=== PATIENT | male | born 1950 | race Caucasian/White ===

== ENCOUNTER 2022-06-19 08:57 | Outpatient (CLI) | payer MEDICARE, BC, SELFPAY ==
--- NOTE | 2022-06-19 09:15 | CRLHL7_ITS ---
For Patients: As a result of the Century Cures Act, medical imaging exams and procedure reports are released immediately into your electronic medical record. You may view this report before your referring provider. If you have questions, please contact your health care provider. INDICATION : Right thyroid lobe nodule TECHNIQUE : Ultrasound-guided fine needle aspiration of thyroid nodule. Comparison : 06/12/2022 FINDINGS : PROCEDURE: After the informed consent and time-out, multiple fine needle aspirations were obtained from the thyroid nodule. Fine needle performed. 25 gauge needles were used. Lidocaine was used for local anesthesia. The preliminary cytology was adequate for interpretation. Real-time imaging was used for guidance and needle placement. Post imaging ultrasound demonstrates no immediate complication. IMPRESSION : Successful fine needle aspiration of right sided thyroid nodule. Dictated by Adarsh Lauren MD @ 06/19/2022 10:46:07 AM (Electronically Signed)
== END 2022-06-19 08:58 | disposition home or self-care (01) ==
PROVIDERS: PCP Student in an Organized Health Care Education/Training Program; Visit Provider Student in an Organized Health Care Education/Training Program
DX: E04.1 Nontoxic single thyroid nodule (principal)
CPT/HCPCS: 10005; 88173

== ENCOUNTER 2022-12-19 18:13 | Emergency (ER) | payer MEDICARE, BC, SELFPAY ==
[2022-12-19 18:21] VITALS: BP 131/74; PULSE 95; RESP 22; TEMP 36.5; O2SAT 97
--- NOTE | 2022-12-19 18:35 | ED_ITS ---
HPI - General Adult General Chief complaint: Lower Extremity Swelling Stated complaint: Swelling R Foot Ankle Calf Time Seen by Provider: 12/19/22 18:14 History of Present Illness HPI narrative: noticed swelling of his right lower leg last night at 2200 after a walk. has concerns of a possible blood clot. denies pain. has been getting treatment in [facility] for multiple myeloma including a stem cell transplant . in immunosuppresse d. called [place] and was directed here. 72-year-old man presenting to the emergency department complete concern of right lower leg/ankle swelling. This began last night after a walk. Worried about possible blood clot. Underlying history of multiple myeloma and 2 months ago received a stem cell transplant. He is not taking any antiplatelet therapy or any anticoagulant. No new shortness of breath or chest pain. No cough. Thought he better just stay ahead of this. Did call to clinic at [place] and is recommended to the emergency department. Related Data Previous Rx's Medication Instructions Recorded apixaban 5 mg (74 tabs) tablets in See Rx Instructions PO .COMPLEX 12/19/22 a dose pack (Superpedestrian DVT-PE Treat #74 ea 30D Start) Allergies Allergy/AdvReac Type Severity Reaction Status Date / Time No Known Drug Allergies Allergy Verified 12/19/22 18:21 Review of Systems Status of ROS: Reports: 6 or more systems reviewed and unremarkable except as noted in History and below PFSH [facility] Social History Smoking Status: Never smoker Do you use any of these nicotine containing products: None Second hand tobacco smoke exposure: Yes How often do you have a drink containing alcohol: monthly or less How many standard drinks containing alcohol do you have on a typical day: 1 or 2 How often do you have six or more drinks on one occasion: Never AUDIT-C Alcohol total score: 1 Non-prescribed substance use: denies use service: No Exam Narrative: Exam Narrative: Pleasant. NAD. Wearing a mask. Breathing easily. Skin is warm and dry. No cellulitic changes about the right lower extremity. Comparing right to left clearly is more edema around the right lower extremity. Somewhere between 1 and 2+ pitting edema from mid leg down. No pain. Negative Homans. Well-perfused. Heart in mildly elevated rate initially in a regular rhythm. Const: Vital Signs, click to edit/add: Vital Signs - 24 hr 12/19/22 18:21 12/19/22 18:42 Temperature 97.7 F 97.2 F L Pulse Rate [Pulse Oximeter] 95 78 Respiratory Rate 22 16 Blood Pressure [Le ft Upper Arm] 131/74 125/78 Pulse Oximetry 97 98 Oxygen Delivery Me thod Room Air Documenting provider has reviewed patient's vital signs: yes Course Vital Signs Vital signs: Initial Vital Signs Temperature 97.7 F 12/19/22 18:21 Temperature Source Temporal Artery Scan 12/19/22 18:21 Pulse Rate 95 12/19/22 18:21 Pulse Rhythm Regular 12/19/22 18:21 Respiratory Rate 22 12/19/22 18:21 Blood Pressure 131/74 12/19/22 18:21 Blood Pressure Mean 93 12/19/22 18:21 Pulse Oximetry 97 12/19/22 18:21 Oxygen Delivery Method Room Air 12/19/22 18:21 Vital Signs Temperature 97.7 F 12/19/22 18:21 Pulse Rate 95 12/19/22 18:21 Respiratory Rate 22 12/19/22 18:21 Blood Pressure 131/74 12/19/22 18:21 Pulse Oximetry 97 12/19/22 18:21 Oxygen Delivery Method Room Air 12/19/22 18:21 Temperature 97.2 F L 12/19/22 18:42 Pulse Rate 78 12/19/22 18:42 Respiratory Rate 16 12/19/22 18:42 Blood Pressure 125/78 12/19/22 18:42 Pulse Oximetry 98 12/19/22 18:42 Oxygen Delivery Method Room Air 12/19/22 18:21 Medical Decision Making MDM Narrative Medical decision making narrative: Asymmetry of presentation warrants ultrasound. And with multiple myeloma a set up for thrombus. Discussed with the mat weaver who notes extensive clot burden from upper thigh to ankle. Radiology Over-read Right lower extremity ultrasound as below--- FINDINGS: Deep veins: Acute thrombus extending from the right common femoral vein, through the femoral and popliteal vein and into the posterior tibial and peroneal veins Superficial veins: Greater saphenous vein is fully compressible. No popliteal cyst. IMPRESSION: Acute thrombus extending from the right common femoral vein, through the femoral and popliteal vein and into the posterior tibial and peroneal veins. Images sent to [facility]. Discussed with on-call provider for [facility] and [facility]. Labs looked good few weeks ago including normal platelet level I believe approximately 180,000. They are in support of initiating NOAC therapy. Given 10 mg of apixaban here in the emergency department. See patient discharge plan Medical Records Medical records reviewed: Yes I reviewed the patient's medical records Discharge Plan Discharge Clinical Impression: Deep venous thrombosis, Multiple myeloma Patient Disposition: Home w/ Parent or Adult Condition: Stable Additional Instructions: Begin further apixaban/Eliquis tomorrow morning; script sent to pharmacy. There are other similar-acting medications available if it turns out that insurance coverage is an issue for you. Report increasing and persistent shortness of breath or chest pain, marked increase in pain or swelling of your leg. BMT (Dr. Gonzales's?) recommendation is to hold your morning dosing of Eliquis/apixaban the morning of your bone marrow biopsy I believe that would be on the . He is also sending a message to your team. Ultrasound images have been sent as well to [facility]. Prescriptions: New Eliquis DVT-PE Treat 30D Start 5 mg (74 tabs) tablets,dose pack See Rx Instructions .ROUTE .COMPLEX Qty: 74 0RF Rx Instructions: orally per package directions Follow Up/Referrals: BRIANNA VÁSQUEZ DO [Primary Care Provider] - Stand Alone Forms: [facility] Info Instructions
--- NOTE | 2022-12-19 18:41 | CRLHL7_ITS ---
For Patients: As a result of the Century Cures Act, medical imaging exams and procedure reports are released immediately into your electronic medical record. You may view this report before your referring provider. If you have questions, please contact your health care provider. INDICATION: Leg pain and swelling. TECHNIQUE: Ultrasound venous duplex lower right extremity. Compression venous exam was performed using mcdonald-scale, color Doppler, and spectral Doppler analysis. COMPARISON: None. FINDINGS: Deep veins: Acute thrombus extending from the right common femoral vein, through the femoral and popliteal vein and into the posterior tibial and peroneal veins Superficial veins: Greater saphenous vein is fully compressible. No popliteal cyst. IMPRESSION: Acute thrombus extending from the right common femoral vein, through the femoral and popliteal vein and into the posterior tibial and peroneal veins. Case discussed with Adarsh Michelle at 6:12 p.m. on 12/19/2022. Dictated by Compa Campoverde MD @ 12/19/2022 8:10:56 PM (Electronically Signed)
[2022-12-19 18:42] VITALS: BP 125/78; PULSE 78; RESP 16; TEMP 36.2; O2SAT 98
[2022-12-19] MEDS: APIXABAN 5 MG TABLET 10 MG PO (21:19)
--- NOTE | 2022-12-20 09:48 | ED.NURSE ---
called the patient and informed of needing to get a Cr level done since starting on apixaban per Dr. Bustillos. patient will contact provider to obtain this. Pharmacy called about the dosing of apixaban 10 mg orally BID x 7days and then 5mg BID for the rest of the time and Dr. Bustillos agreed but requested patient to obtain Cr level by PCP.
== END 2022-12-19 21:21 | disposition home or self-care (01) ==
PROVIDERS: Emergency Provider Family Medicine; PCP Student in an Organized Health Care Education/Training Program
DX: I82.411 Acute embolism and thrombosis of right femoral vein (principal); C90.00 Multiple myeloma not having achieved remission
CPT/HCPCS: 93971; 99283; 99284; A9270

== ENCOUNTER 2024-12-17 06:08 | Outpatient (CLI) | payer MEDICARE, BC, SELFPAY | END 2024-12-17 06:09 | disposition home or self-care (01) | LOC: AMB 12-18 10:12 | PROVIDERS: PCP Student in an Organized Health Care Education/Training Program; Visit Provider Family Medicine | DX: R53.1 Weakness (principal); R50.9 Fever, unspecified; R10.9 Unspecified abdominal pain | CPT/HCPCS: A0425; A0433 ==

== ENCOUNTER 2024-12-17 06:45 | Inpatient (IN) | payer MEDICARE, BC, SELFPAY ==
[2024-12-17] VITALS (43 sets, daily range): BP systolic 120–175; BP diastolic 61–87; PULSE 67–86; RESP 28–44; TEMP 35.9–37.8; O2SAT 90–98; BMI 36.5; BMI 30.6
--- OUTSIDE RECORDS SUMMARY | 2024-12-17 06:48 | XMS_ITS | Clinical Summary ---
Author Organization [facility] Address [address] [place] [id number] Care Team Providers Care Assembler Tester Name Role Phone Quincyra Alma CHAVEZ Primary Care Provider [phone] Yvette Valerio MD Unavailable [phone] Martha Todd NUTRITION SERVICES ASSOCIATE Unavailable Kiara Bai RN Unavailable [phone] Taty Parker RN Unavailable Allergies No known active allergies Medications DME Foot orthotics 2 pair Diagnosis foot pain 2 Units 0 03/25/20 13 Active ACCU-CHEK WILNER PLUS TEST STRP stripIndication s:Type 2 diabetes mellitus without complication, without long-term current use of insulin (HC) USE TO TEST BLOOD GLUCOSE ONCE DAILY DIRECTED 100 Strip 3 07/29/19 21 Active blood-glucose meterIndication s:Type 2 diabetes mellitus with diabetic neuropathy, without long-term current use of insulin (HC) Dispense prodigy meter, test strips, lancets covered by pt ins. 1 Device 09/29/19 21 Active lancetsIndicati ons:Type 2 diabetes mellitus with diabetic neuropathy, without long-term current use of insulin (HC) Test 1 times per day. 100 Each 3 11/30/19 22 Active blood sugar diagnostic stripIndication s:Type 2 diabetes mellitus with diabetic neuropathy, without long-term current use of insulin (HC) Check glucose 4 times daily daily Dispense item covered by pt ins. Prodigy requested 125 Each 5 07/26/19 23 Active Insulin [place], Disposable, (Aidee Pen Needle) 32 gauge x 5/32Indication s:Type 2 diabetes mellitus with diabetic neuropathy, without long-term current use of insulin (HC) As directed. To use with insulin once daily 100 Each 3 07/26/19 23 Active polyethylene glycol 3350 (MIRALAX ORAL) Take 17 g by mouth each time if needed. Active MULTIVITAMIN ORAL Take by mouth. Activ e insulin syringe-needle u-100 0.3 mL 31 gauge x 5/16Indication s:Type 2 diabetes mellitus with diabetic neuropathy, without long-term current use of insulin (HC) To be used with Tresiba once nightly 100 Each 3 09/23/19 24 Active metFORMIN (GLUCOPHAGE XR) 500 mg Extended-Releas e tabletIndicatio ns:Type 2 diabetes mellitus with diabetic neuropathy, without long-term current use of insulin (HC) TAKE TWO TABLETS BY MOUTH TWICE A DAY WITH MEALS 360 Tablet 3 01/02/20 24 Active FreeStyle Danna 2 ReaderIndicatio ns:Type 2 diabetes mellitus without complication, without long-term current use of insulin (HC) To be used to read blood sugars per global program director's directions. 1 Each 3 04/17/20 24 Active Eliquis 5 mg tabletIndicatio ns:Acute deep vein thrombosis (DVT) of proximal vein of right lower extremity (HC) TAKE ONE TABLET BY MOUTH TWICE A DAY . 180 Tablet 1 07/06/20 24 Active acyclovir (ZOVIRAX) 400 mg tabletIndicatio ns:Multiple myeloma not having achieved remission (HC) TAKE ONE TABLET BY MOUTH TWICE A DAY 60 Tablet 5 07/03/20 24 Active trimethoprim-black lfamethoxazole 80-400 mg tabIndications: Multiple myeloma, remission status unspecified (HC) Take 1 Tablet by mouth once daily. 30 Tablet 11 08/06/19 25 Active pen needle (Aidee Pen Needle) 32 gauge x 5/32 (disposable insulin pen needle)Indicati ons:Type 2 diabetes mellitus with diabetic neuropathy, without long-term current use of insulin (HC) TO BE USED WITH TRESIBA ONCE NIGHTLY 100 Each 3 09/02/19 25 Active insulin degludec (U-100) (Tresiba FlexTouch U-100) 100 unit/mL (3 mL) penIndications: Type 2 diabetes mellitus without complication, with long-term current use of insulin (HC) Inject 11 units subcutaneous once daily in the evening. 11/07/19 25 Active pregabalin 75 mg capsuleIndicati ons:Peripheral sensory neuropathy Take 1 Capsule (75 mg) by mouth two times daily. 180 Capsule 1 11/07/19 25 Active FreeStyle Danna 3 Plus Sensor for continuous blood glucose monitor (CGM)Indication s:Type 2 diabetes mellitus with diabetic neuropathy, without long-term current use of insulin (HC) To be used to read blood sugars, change sensor every 15 days. 6 Each 3 11/07/19 25 Active paper sample clerk (FreeStyle Danna 3 [place]) for continuous blood glucose monitor (CGM)Indication s:Type 2 diabetes mellitus with diabetic neuropathy, without long-term current use of insulin (HC) To be used to read blood sugars follow global program director directions. 1 Each 11/07/19 25 Active potassium chloride 20 mEq packetIndicatio ns:Hypokalemia Mix 1 Packet (20 mEq) in liquid then take by mouth two times daily with meals. 90 Packet 3 11/26/19 25 Active lenalidomide (Revlimid) 10 mg capsuleIndicati ons:Multiple myeloma not having achieved remission (HC),Hypothyroi dism due to medication Take 1 Capsule (10 mg) by mouth once daily. Take on days 1-21 of an every 28 day cycle 21 Capsule 12/30/19 25 Active lenalidomide (Revlimid) 10 mg capsuleIndicati ons:Multiple myeloma not having achieved remission (HC),Hypothyroi dism due to medication Take 1 Capsule (10 mg) by mouth once daily. Take on days 1-21 of an every 28 day cycle 21 Capsule 11/04/19 25 025 Discontin ued(Reord er (E-cancel not sent)) potassium chloride 10 mEq extended-releas e tablet (part/cryst)Ind ications:Hypoka lemia Take 1 Tablet (10 mEq) by mouth two times daily with meals. 10 Tablet 11/04/19 25 025 Discontin ued(*Medi cation adjustmen t) lenalidomide (Revlimid) 10 mg capsuleIndicati ons:Multiple myeloma not having achieved remission (HC),Hypothyroi dism due to medication Take 1 Capsule (10 mg) by mouth once daily. Take on days 1-21 of an every 28 day cycle 21 Capsule 12/02/19 025 Discontin ued(Reord er (E-cancel not sent)) Active Problems Problem Noted Date Diagnosed Date Stem cells transplant status 11/26/2024 Overview (11/26/2024): AI Summary: As of 08/06/24: The patient had a stem cell transplant (HC Z94.84). Recent encounter dx: 08/06/24: Appointment - [facility] Recent notes: 08/06/24: Progress Notes - Medicare Wellness Visit by DO Pearl Caballero. [+] Stem cells transplant status (HC) Z94.84 Hypothyroidism due to medication 08/11/2024 Type 2 diabetes mellitus wit h diabetic neuropathy, without long-term current use of insulin 07/11/2023 Pancytopenia 11/11/2022 12/07/2022 Primary hypertension 10/15/2022 12/07/2022 Obesity with body mass index 30 or greater 10/1512/07/2022 Bone marrow transplant status 10/11/2022 Multiple myeloma not having achieved remission 1 08/06/2021 Cancer Staging:Clinical: High-risk cytogenetics: Present - Signed by Yvette Valerio MD on 01/01/2023 Type 2 diabetes mellitus without complication Colon polyp 08/07/2010 Overview (06/27/2023): Colonoscopy 07/2010 multiple polyps repeat in 3 year Colonoscopy 03/2020 six polyps, repeat in 3 years Colonoscopy 06/2023 normal, repeat in 7-10 years Encounters Date Type Department Care Team Description 12/15/2024 1:45 PM CDT Office Visit [facility] [id number] [id number] Taty Leroy MD Derm Problem 12/15/2024 Travel 12/10/2024 Travel 12/01/2024 10:00 AM CDT Office Visit [address] [phone] Yvette Valerio MD Follow Up (Multiple myeloma not having achieved remission ) 12/01/2024 9:00 AM CDT - 12/01/2024 11:59 PM CDT Hospital Encounter [facility] [address] [facility] [place] [address] Hypothyroidism due to medication (Primary Dx); Multiple myeloma not having achieved remission (HC) 12/01/2024 Travel 11/27/2024 Travel 11/26/2024 8:55 AM CDT Office Visit [facility] [address] [place] [address] Alma Mcwilliams DO Ear Pain/problem (RIGHT ear ) 11/26/2024 Travel 11/24/2024 3:15 PM CDT Orders Only [facility] [address] [place] [address] Lab, [facility] 11/24/2024 Travel 11/24/2024 Hospital/[facility] Telephone Encounter [facility] [address] [facility] [place] [address] Ksenia Desouza RN Pre Procedure (PVP) 11/21/2024 Refill [facility] Disease Management [address] [place] [address] Yvette Valerio MD Refill Request (Revlimid) 11/09/2024 Refill [facility] [address] [place] [address] Alma Mcwilliams DO Refill Request (FreeStyle Danna 2 Sensor) 11/06/2024 11:25 AM CDT Office Visit [facility] [address] [place] [address] Alma Mcwilliams DO Diabetes 11/06/2024 Telephone [facility] [address] [place] [address] Alma Mcwilliams DO Medication Management (FREESTYLE DANNA) 11/06/2024 Travel 11/04/2024 Travel 11/03/2024 9:45 AM CDT Office Visit [facility] [address] [place] [address] Martha Todd, DAMIAN Follow Up (Multiple myeloma not having achieved remission) 11/03/2024 8:45 AM CDT - 11/03/2024 11:59 PM CDT Hospital Encounter [facility] [address] [facility] [place] [address] Hypothyroidism due to medication (Primary Dx); Multiple myeloma not having achieved remission (HC) 11/03/2024 Travel 10/28/2024 Hospital/[facility] Telephone Encounter [facility] [address] [place] [address] Ksenia Desouza RN Pre Procedure (PVP) 10/13/2024 12:40 PM CDT - 10/13/2024 11:59 PM CDT Hospital Encounter [facility] [address] [place] [address] Alma Mcwilliams DO Noble, Isaac J, PT 10/13/2024 Travel 10/06/2024 12:54 PM CDT - 10/06/2024 11:59 PM CDT Hospital Encounter [facility] [address] [place] [address] Alma Mcwilliams DO Noble, Isaac J, PT 10/05/2024 11:30 AM CDT Office Visit [facility] [address] [place] [phone] Yvette Valerio MD Follow Up (Multiple myeloma) 10/05/2024 10:22 AM CDT - 10/05/2024 11:59 PM CDT Hospital Encounter [facility] [address] [place] [address] Hypothyroidism due to medication (Primary Dx); Multiple myeloma not having achieved remission (HC) 10/05/2024 Travel 10/03/2024 Travel 09/29/2024 11:37 AM CDT - 09/29/2024 11:59 PM CDT Hospital Encounter [address] [address] Alma Mcwilliams DO Noble, Isaac J, PT 09/29/2024 Hospital/[facility] Telephone Encounter [facility] - [address] [place] [address] Geraldine Powers, RN Pre Procedure 09/29/2024 Travel from Last 3 Months Immunizations Immunization Administration Dates Next Due COVID-19 VACCINE SPIKEVAX (M ODERNA 50MCG/0.5ML) 12YO+ PFS 05/13/2023 COVID-19 vaccine (Pfizer-Bio NTech 30mcg/0.3mL) 12YO+ BIVALENT PF, MDV 03/29/2022 COVID-19 vaccine (Pfizer-Bio NTech 30mcg/0.3mL) 12YO+ ARSALAN-SUCROSE PF, MDV 10/31/2021 COVID-19 vaccine (Pfizer-Bio NTech 30mcg/0.3mL) PF, MDV 04/17/2021,10/04/2020,09/13/2020 DTaP 09/16/2023,07/04/2023,04/29/2023 HIB PRP-OMP (PedvaxHIB) 09/16/2023,07/04/2023, Hepatitis A (Adult) 11/18/2023,05/13/2023 Hepatitis B (Adult) 11/18/2023,07/19/2023,2022 Inactivated Polio Vaccine 09/16/2023,07/19/2023, 05/13/2023 Influenza Virus, Unspecified 03/12/2018,05/19/20 17 Influenza, High-dose Quadriv alent Inactivated 04/24/2021 Influenza, IIV3 (Age 6-35 mos) 03/12/2018,2008 Influenza, IIV3 (Age >=3 years) 03/13/2013,03/12,05/08/2010 Influenza, IIV4 03/10/2015,03/11/2014 Influenza, IIV4 (=>6mos) MDV 03/09/2020,03/11/20 19 Influenza, Inactivated AIIV4 (Age 65+ Years) Preserv Free 04/02/2023,03/29/2022 Influenza, Inactivated IIV3 (Age 65+ Years) Preserv Free 04/02/2024 MENINGOCOCCAL VACCINE 2 VIAL 2MO-55YO (MENVEO) 07/04/2023,04/29/2023 Pneumococcal Conj 20-valent (Prevnar 20) 04/29/2023 Pneumococcal Poly,23-Valent (Pneumovax) 06/10/2019 Pneumococcal conj 13-Valent (Prevnar 13) 03/18/2018 RSV, Recombinant ADJ Reconst ituted (Arexvy 120MCG/0.5mL) 04/08/2024 Td (Age >=7 Years) 09/16/2006 Tdap 02/13/2017 Zoster (Shingrix-RZV, recombinant) 07/19,05/13/2023,2019,06/10 Family History Medical History Relation Name Comments Diabetes Brother type 1 Cancer-colon Father Relation Name Status Comments Brother Father Social History Tobacco Use Types Packs/Day Years Used Date Smoking Tobacco: Never Smokeless Tobacco: Never Tobacco Cessation:Counseling Given: Yes Alcohol Use Standard Drinks/Week Comments Not Currently 0 (1 standard drink = 0.6 oz pur e alcohol) occ - 1 a month PHQ-2 Answer Date Recorded PHQ-2 TOTAL SCORE 0 08/06/2024 Social Connections Answer Date Recorded Do you often feel lonely or isolated from those around you? 0 04/30/2024 Financial Resource Strain Answer Date R ecorded Difficulty of Paying Living Expenses 3 04/30/2024 Difficulty of Paying Living Expenses Not on file 04/30/2024 Food Insecurity Answer Date Recorded Do you worry your food will run out before you are able to buy more? 1 04/30/2024 Transportation Needs Answer Date Record ed Does lack of transportation keep you from medica l appointments? 1 04/30/2024 Does lack of transportation keep you from work, meetings or getting things that you need? 1 04/30/2024 Housing Stability Answer Date Recorded What is your housing situation today? 1 04/30/2024 Interpersonal Safety Answer Date Record ed Are you being hit, kicked, p ushed or yelled at (see row info)? No 03/17/2024 Interpersonal Safety Abuse 12 - 18 Not on file 03/17/2024 Interpersonal Safety Ambulatory Vulnerability No t on file 03/17/2024 Utilities Answer Date Recorded Do you have trouble paying f or utilities (for example, heat, electricity, water, phone)? 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 on file Not on file Not on file Travel History Travel Start Travel End [place] 12/04/2024 12/13/2024 Obstetrics History Last Filed Vital Signs Vital Sign Reading Time Taken Comments Blood Pressure 147/69 12/01/2024 9:47 AM CDT Pulse 60 12/01/2024 9:47 AM CDT Temperature 36.4 C (97.5 F) 12/01/2024 9:47 AM CDT Respiratory Rate 16 12/01/2024 9:47 AM CDT Oxygen Saturation 96% 12/01/2024 9:47 AM CDT Inhaled Oxygen Concentration - - Weight 96.8 kg (213 lb 8 oz) 12/01/2024 9:47 AM CDT Height 175.3 cm (5' 9) 08/06/2024 12:29 PM SEAM FELLER Body Mass Index 31.53 08/06/2024 12:29 PM SEAM FELLER Plan of Treatment Upcoming Encounters Date Type Department Care Team (Late st Contact Info) Description 12/29/2024 11:45 AM CDT Appointment [facility] [address] [place] [address] 12/29/2024 12:45 PM CDT Office Visit [facility] [address] [place] [phone] Martha Todd, NUTRITION SERVICES ASSOCIATE [address] [place] [address] 12/29/2024 1:15 PM CDT Appointment [facility] [address] [place] [address] 02/08/2025 11:00 AM CDT Office Visit [address] [address] Oj DO Alma [address] [place] [address] Health Maintenance Due Date Last Done Comments COVID-19 vaccine series (8 - Pfizer risk 2023- season) 2024 04/02/2024, 05/13/2023, 03/29/2022, Additional history exists BMI (ht and wt on same day) for age 18+ 08/06/2025 08/06/2024, 07/11/2023, 04/09/2023, Additional history exists Medicare Wellness for age 65+ 08/07/2025, 07/11/2023, 10/31/2021 Depression screening for age 12+ 08/14/2025 08/14/2024, 08/10/2024, 08/06/2024, Additional history exists Tetanus booster 02/13/2027 02/13/2017, 09/16/2006 Lipids for age 45-75 08/06/2029 08/06/2024, 04/28/2021, 2019, Additional history exists Colonoscopy through age 75 06/27/203006/27, 06/27/2023, 06/27/2023, Additional history exists Tdap Completed 02/13/2017 Hepatitis C screening for ag e 18-79 Completed 10/27/2020 Pneumococcal series for age 50+ Completed 04/29/2023, 06/10/2019, 03/18/2018 Zoster (shingles) series for age 50+ Completed 07/19/2023, 05/13/2023, 2019, Additional history exists Hepatitis B series for 19+ Completed 11/17, 07/19/2023, 05/13/2023 Influenza Vaccine Completed 04/02/2024, , 03/29/2022, Additional history exists RSV vaccine for adults or Completed 04/08/2024 Procedures Procedure Name Priority Date/Time Associated Diagnosis Comments T4,FREE Timed 12/01/2024 9:12 AM CDT Multiple myeloma not having achieved remission (HC) Hypothyroidism due to medication CBC WITH AUTO DIFFERENTIAL STAT 12/01/2024 9:12 AM CDT Multiple myeloma not having achieved remission (HC) Hypothyroidism due to medication TSH WITH REFLEX Today 12/01/2024 9:12 AM CDT Multiple myeloma not having achieved remission (HC) Hypothyroidism due to medication PROTEIN ELP,SERUM Today 12/01/2024 9:1 2 AM CDT Multiple myeloma not having achieved remission (HC) Hypothyroidism due to medication IMMUNOGLOBULINS,IGG/A/M Today 12/02/19 9:12 AM CDT Multiple myeloma not having achieved remission (HC) Hypothyroidism due to medication IMMUNOGLOBULINS FREE LT CHAIN SERUM Today 12/01/2024 9:12 AM CDT Multiple myeloma not having achieved remission (HC) Hypothyroidism due to medication COMP METABOLIC PANEL STAT 12/01/2024 9:12 AM CDT Multiple myeloma not having achieved remission (HC) Hypothyroidism due to medication CBC WITH AUTO DIFFERENTIAL STAT 12/01/2024 9:12 AM CDT Multiple myeloma not having achieved remission (HC) Hypothyroidism due to medication BASIC METABOLIC PANEL Routine 11/24/2024 3:16 PM CDT Elevated serum creatinine HEMOGLOBIN A1C MONITORING (POCT) Routine 11/06/2024 11:32 AM CDT Type 2 diabetes mellitus without complication, with long-term current use of insulin (HC) T4,FREE Timed 11/03/2024 8:59 AM CDT Multiple myeloma not having achieved remission (HC) Hypothyroidism due to medication CBC WITH AUTO DIFFERENTIAL STAT 11/03/2024 8:59 AM CDT Multiple myeloma not having achieved remission (HC) Hypothyroidism due to medication TSH WITH REFLEX Today 11/03/2024 8:59 AM CDT Multiple myeloma not having achieved remission (HC) Hypothyroidism due to medication PROTEIN ELP,SERUM Today 11/03/2024 8:5 9 AM CDT Multiple myeloma not having achieved remission (HC) Hypothyroidism due to medication IMMUNOGLOBULINS,IGG/A/M Today 11/04/19 25 8:59 AM CDT Multiple myeloma not having achieved remission (HC) Hypothyroidism due to medication IMMUNOGLOBULINS FREE LT CHAIN SERUM Today 11/03/2024 8:59 AM CDT Multiple myeloma not having achieved remission (HC) Hypothyroidism due to medication COMP METABOLIC PANEL STAT 11/03/2024 8:59 AM CDT Multiple myeloma not having achieved remission (HC) Hypothyroidism due to medication CBC WITH AUTO DIFFERENTIAL STAT 11/03/2024 8:59 AM CDT Multiple myeloma not having achieved remission (HC) Hypothyroidism due to medication CBC WITH AUTO DIFFERENTIAL STAT 10/05/2024 10:30 AM CDT Multiple myeloma not having achieved remission (HC) Hypothyroidism due to medication TSH WITH REFLEX Routine 10/05/2024 10:30 AM CDT Multiple myeloma not having achieved remission (HC) Hypothyroidism due to medication PROTEIN ELP,SERUM Routine 10/05/2024 10: 30 AM CDT Multiple myeloma not having achieved remission (HC) Hypothyroidism due to medication IMMUNOGLOBULINS,IGG/A/M Routine 10/06/19 10:30 AM CDT Multiple myeloma not having achieved remission (HC) Hypothyroidism due to medication IMMUNOGLOBULINS FREE LT CHAIN SERUM Routine 10/05/2024 10:30 AM CDT Multiple myeloma not having achieved remission (HC) Hypothyroidism due to medication COMP METABOLIC PANEL STAT 10/05/2024 10:30 AM CDT Multiple myeloma not having achieved remission (HC) Hypothyroidism due to medication CBC WITH AUTO DIFFERENTIAL STAT 10/05/2024 10:30 AM CDT Multiple myeloma not having achieved remission (HC) Hypothyroidism due to medication LIPID PANEL Routine 08/06/2024 12:13 PM SEAM FELLER Type 2 diabetes mellitus without complication, without long-term current use of insulin (HC) COLONOSCOPY SCREENING Routine 06/27/2023 8:44 AM SEAM FELLER History of colon polyps ANTI HCV Routine 10/27/2020 1:39 PM CDT Need for hepatitis C screening test from Last 3 Months or Most Recently Relevant to Health Maintenance Results * (ABNORMAL) CBC WITH AUTO DIFFERENTIAL (12/01/2024 9:12 AM CDT) Only the most recent of3 resultswithin the time period is included. WHITE BLOOD COUNT 3.1(L) 4.5 - 11.0 thou/cu mm 12/01/2024 9:18 AM [facility] RED BLOOD COUNT 3.61(L) 4.30 - 5.90 mil/cu mm 12/01/2024 9:18 AM [facility] HEMOGLOBIN 11.5(L) 13.5 - 17.5 g/dL 12/01/2024 9:18 AM [facility] HEMATOCRIT 34.7(L) 37.0 - 53.0 % 12/01/2024 9:18 AM [facility] MCV 96 80 - 100 fL 12/01/2024 9:18 AM [facility] MCH 31.9 26.0 - 34.0 pg 12/01/2024 9:18 AM [facility] MCHC 33.1 32.0 - 36.0 g/dL 12/01/2024 9:18 AM [facility] RDW 13.3 11.5 - 15.5 % 12/01/2024 9:18 AM [facility] PLATELET COUNT 133(L) 140 - 440 thou/cu mm 12/01/2024 9:18 AM [facility] MPV 8.9 6.5 - 11.0 fL 12/01/2024 9:18 AM [facility] % NEUT 63.8 % 12/01/2024 9:18 AM [facility] % LYMPH 24.0 % 12/01/2024 9:18 AM [facility] % MONO 7.0 % 12/01/2024 9:18 AM [facility] % EOS 2.6 % 12/01/2024 9:18 AM [facility] % BASO 2.6 % 12/01/2024 9:18 AM [facility] ABSOLUTE NEUTROPHILS 2.0 1.7 - 7.0 thou/cu mm 12/01/2024 9:18 AM [facility] ABSOLUTE LYMPHOCYTES 0.8(L) 0.9 - 2.9 thou/cu mm 12/01/2024 9:18 AM [facility] ABSOLUTE MONOCYTES 0.2 <0.9 thou/cu mm 12/01/2024 9:18 AM [facility] ABSOLUTE EOSINOPHILS 0.1 <0.5 thou/cu mm 12/01/2024 9:18 AM [facility] ABSOLUTE BASOPHILS 0.1 <0.3 thou/cu mm 12/01/2024 9:18 AM [facility] Blood BLOOD SPECIMEN / Unknown Venipuncture / Unknown 12/01/2024 9:12 AM CDT 12/01/2024 9:14 AM CDT us Martha Todd NP HEMATOLOGY Final Result [facility] [address] [place] [address] * (ABNORMAL) TSH WITH REFLEX (12/01/2024 9:12 AM CDT) Only the most recent of3 resultswithin the time period is included. TSH 4.48(H) 0.27 - 4.20 uIU/mL 12/01/2024 9:52 AM [facility] Blood BLOOD SPECIMEN / Unknown Venipuncture / Unknown 12/01/2024 9:12 AM CDT 12/01/2024 9:14 AM CDT Narrative [facility] - 12/01/2024 9:52 AM CDT In Adults, TSH values between 5.00 and 10.00 uIU/ml do not necessarily indicate the presence of Hypothyroidism. Correlation with clinical findings such as presence of goiter and/or Thyroperoxidase (TPO) Antibody may be helpful. For more information please refer to JOSSELYN 2004; 291: 228-238. Martha Todd NP CHEMISTRY Final Result Performing Organization Address [facility]/ZIP Co de Phone Number [facility] [address] [place] [address] * IMMUNOGLOBULINS FREE LT CHAIN SERUM (12/01/2024 9:12 AM CDT) Only the most recent of3 resultswithin the time period is included. KAPPA FREE LIGHT CHAIN, S 1.41 0.33 - 1.94 mg/dL 12/02/2024 10:42 AM CDT [facility] LAMBDA FREE LIGHT CHAIN, S 1.54 0.57 - 2.63 mg/dL 12/02/2024 10:42 AM CDT [facility] KAPPA/LAMBDA FLC RATIO 0.92 0.26 - 1.65 12/02/2024 10:42 AM CDT [facility] Blood BLOOD SPECIMEN / Unknown Venipuncture / Unknown 12/01/2024 9:12 AM CDT 12/01/2024 9:14 AM CDT us Martha Todd NP SEND OUTS Final Result Performing Organization Address City/[facility]/ZIP Co de Phone Number [facility] [address] [place] [address], [place] * (ABNORMAL) IMMUNOGLOBULINS,IGG/A/M (12/01/2024 9:12 AM CDT) Only the most recent of3 resultswithin the time period is included. IGM 301.56(H) 35.00 - 242.00 mg/dL 12/02/2024 10:42 AM CDT [facility] IGA 2.15(L) 84.50 - 499.00 mg/dL 12/02/2024 10:42 AM CDT [facility] IGG 417.42(L) 610.30 - 1,616.00 mg/dL 12/02/2024 10:42 AM CDT [facility] Blood BLOOD SPECIMEN / Unknown Venipuncture / Unknown 12/01/2024 9:12 AM CDT 12/01/2024 9:14 AM CDT us Martha L Selly NUTRITION SERVICES ASSOCIATE CHEMISTRY Final Result Performing Organization Address City/[facility]/ZIP Co de Phone Number [facility] [address] [address], [place] * T4,FREE (12/01/2024 9:12 AM CDT) Only the most recent of2 resultswithin the time period is included. T4,FREE 1.02 0.93 - 1.70 ng/dL 12/02/2024 12:57 AM CDT [facility] Blood BLOOD SPECIMEN / Unknown Venipuncture / Unknown 12/01/2024 9:12 AM CDT 12/01/2024 9:14 AM CDT Amrtha L Juany NUTRITION SERVICES ASSOCIATE CHEMISTRY Final Result Performing Organization Address City/[facility]/ZIP Co de Phone Number [facility] [address] [address], [place] * (ABNORMAL) PROTEIN ELP,SERUM (12/01/2024 9:12 AM CDT) Only the most recent of3 resultswithin the time period is included. ELP,ALBUMIN 3.46 3.31 - 5.31 g/dL 12/03/2024 4:51 PM CDT [facility] ELP,ALPHA 1 0.30 0.19 - 0.42 g/dL 12/03/2024 4:51 PM CDT [facility] ELP,ALPHA 2 0.67 0.44 - 1.03 g/dL 12/03/2024 4:51 PM CDT [facility] ELP,GAMMA 0.53(L) 0.59 - 1.46 g/dL 12/03/2024 4:51 PM CDT [facility] ELP,BETA 0.64 0.52 - 1.05 g/dL 12/03/2024 4:51 PM CDT [facility] MONOCLONAL PEAK 1 0.05 <=0.00 g/dL 12/03/2024 4:51 PM CDT [facility] MONOCLONAL PEAK 2 0.06 <=0.00 g/dL 12/03/2024 4:51 PM CDT [facility] ELP INTERP,SERUM Interval study shows an increase in magnitude of previously identified monoclonal peaks. Previous Study: 0.03/0.04 gm/dL on 11/03/2024. Interpreted and electronically signed by: Carlin Ramos Jr, MD 12/03/2024 4:51 PM CDT [facility] PROTEIN,TOTAL 5.6(L) 6.0 - 8.0 g/dL 12/03/2024 4:51 PM T [facility] Blood BLOOD SPECIMEN / Unknown Venipuncture / Unknown 12/01/2024 9:12 AM CDT 12/01/2024 9:14 AM CDT us Martha Todd NP CHEMISTRY Final Result [facility] [address] [place] [address], * (ABNORMAL) COMP METABOLIC PANEL (12/01/2024 9:12 AM CDT) Only the most recent of3 resultswithin the time period is included. SODIUM 140 136 - 145 mmol/L 12/01/2024 9:52 AM CDT [facility] POTASSIUM 4.4 3.5 - 5.1 mmol/L 12/01/2024 9:52 AM CDT [facility] CHLORIDE 104 98 - 107 mmol/L 12/01/2024 9:52 AM [facility] CO2,TOTAL 25 22 - 29 mmol/L 12/01/2024 9:52 AM [facility] ANION GAP 11 5 - 18 12/01/2024 9:52 AM [facility] GLUCOSE 186(H) 70 - 99 mg/dL 12/01/2024 9:52 AM [facility] CALCIUM 9.1 8.8 - 10.4 mg/dL 12/01/2024 9:52 AM [facility] Comment: Reference ranges for this test were updated on 05/12/2024 to reflect our healthy population more accurately. Reference range changes are not retroactively applied to results, but previous results using the same methodology can be interpreted in the context of the new reference range. BUN 21 8 - 23 mg/dL 12/01/2024 9:52 AM [facility] CREATININE 1.08 0.70 - 1.20 mg/dL 12/01/2024 9:52 AM [facility] BUN/CREAT RATIO 19 10 - 20 9:52 AM [facility] eGFR 73(L) >90 mL/min/1. 73m2 12/01/2024 9:52 AM [facility] Comment:As of 2021, eG FR is calculated by the CKD-EPI creatinine equation without race adjustment. eGFR can be influenced by muscle mass, exercise, and diet. The reported eGFR is an estimation only and is only applicable if the renal function is stable. ALBUMIN 3.9(L) 4.0 - 4.9 g/dL 12/01/2024 9:52 AM [facility] PROTEIN,TOTAL 5.9(L) 6.0 - 8.0 g/dL 12/01/2024 9:52 AM [facility] BILIRUBIN,TOTAL 0.3 0.0 - 1.2 mg/dL 12/01/2024 9:52 AM [facility] ALK PHOSPHATASE 286(H) 40 - 129 IU/L 12/01/2024 9:52 AM [facility] ALT (SGPT) 54(H) 10 - 50 IU/L 12/01/2024 9:52 AM CDT [facility] AST (SGOT) 49 10 - 50 IU/L 12/01/2024 9:52 AM CDT [facility] Blood BLOOD SPECIMEN / Unknown Venipuncture / Unknown 12/01/2024 9:12 AM CDT 12/01/2024 9:14 AM CDT us Martha Todd NP CHEMISTRY Final Result [facility] [address] [place] [address] * (ABNORMAL) BASIC METABOLIC PANEL (11/24/2024 3:16 PM CDT) GLUCOSE 154(H) 65 - 99 mg/dL [facility] Comment: Fasting reference interval For someone without known diabetes, a glucose value >125 mg/dL indicates that they may have diabetes and this should be confirmed with a follow-up test. UREA NITROGEN (BUN) 10 7 - 25 mg/dL [facility] CREATININE 1.20 0.70 - 1.28 mg/dL [facility] EGFR 65 > OR = 60 mL/min/1. 73m2 [facility] BUN/CREATININE RATIO SEE NOTE: 6 - 22 (calc) [facility] Comment: Not Reported: BUN and Creatinine are within reference range. SODIUM 139 135 - 146 mmol/L [facility] POTASSIUM 2.7(LL) 3.5 - 5.3 mmol/L [facility] Comment: Verified by repeat analysis. CHLORIDE 93(L) 98 - 110 mmol/L [facility] CARBON DIOXIDE 35(H) 20 - 32 mmol/L [facility] ELECTROLYTE BALANCE 11 7 - 17 mmol/L (calc) [facility] CALCIUM 8.3(L) 8.6 - 10.3 mg/dL [facility] Blood BLOOD SPECIMEN / Unknown 11/24/2024 3:16 PM CDT 11/24/2024 3:16 PM CDT Alma Mcwilliams DO CHEMISTRY Final Result [facility] [address] [place] [address], [facility] [address] [place] [address] * (ABNORMAL) POCT Hemoglobin A1C Monitoring (11/06/2024 11:32 AM CDT) POC HEMOGLOBIN A1C 7.3(H) <6.0 % OF TOTAL [facility] Comment: Any point of care results exhibiting inconsistency with the patient's clinical status should be repeated using a different testing method. Blood BLOOD SPECIMEN / Unknown 11/06/2024 11:32 AM CDT 11/06/2024 11:33 AM CDT Alma Mcwilliams DO CHEMISTRY Final Result Performing Organization Address [facility]/ZIP Co de Phone Number [facility] [address] [place] [address], [facility] [address] [place] [address] * (ABNORMAL) LIPID PANEL (08/06/2024 12:13 PM SEAM FELLER) CHOLESTEROL, TOTAL 176 <200 mg/dL [facility] HDL CHOLESTEROL 50 > OR = 40 mg/dL [facility] TRIGLYCERIDES 228(H) <150 mg/dL [facility] Comment: If a non-fasting specimen was collected, consider repeat triglyceride testing on a fasting specimen if clinically indicated. Israel et al. J. of Clin. Lipidol. 2015;9:129-169. LDL-CHOLESTEROL 94 mg/dL (calc) [facility] Comment: Reference range: <100 Desirable range <100 mg/dL for primary prevention; <70 mg/dL for patients with CHD or diabetic patients with > or = 2 CHD risk factors. LDL-C is now calculated using the Sal calculation, which is a validated novel method providing better accuracy than the Friedewald equation in the estimation of LDL-C. Ron NGUYEN et al. JOSSELYN. 2013;310(19): 5278-7320 (http://education.Properati/faq/YFD152) CHOL/HDLC RATIO 3.5 <5.0 (calc) [facility] NON HDL CHOLESTEROL 126 <130 mg/dL (calc) [facility] Comment: For patients with diabetes plus 1 major ASCVD risk factor, treating to a non-HDL-C goal of <100 mg/dL (LDL-C of <70 mg/dL) is considered a therapeutic option. Blood BLOOD SPECIMEN / Unknown 08/06/2024 12:13 PM SEAM FELLER 08/06/2024 12:13 PM SEAM FELLER Alma Mcwilliams DO CHEMISTRY Final Result [employer] [facility] [address] [place] [address], [facility] [address] [place] [address] * COLONOSCOPY (06/27/2023 9:06 AM SEAM FELLER) 06/27/2023 9:06 AM SEAM FELLER Narrative Transcriptions Ron Mittal MD - 06/27/2023 10:19 AM CST Patient Name: Lui Peñaloza Procedure Date: 06/27/2023 Gender: Male Date of : 1950 Admit Type: Outpatient Procedure: Colonoscopy Proceduralist: Ron Mittal MD , Aminta Lynch (Nurse), Latosha Wang (Nurse) Referring MD: Alma Mcwilliams Indications/Pre-Op Diagnosis: High risk colon cancer surveillance:Personal history of multiple (3 or more) adenomas,Last colonoscopy: March 2020 Medications: Fentanyl 100 micrograms IV, Midazolam 3 mgIV, The level of sedation administered wasmoderate Procedure Description: The patient had risks, benefits and alternatives explained to andgave informed consent. The patient had a stable cardiopulmonary status and judged an adequate candidate for conscious sedation. The endoscope [id number] was passed through the anus andadvanced to the cecum, identified by appendiceal orifice and ileocecal valve.The colonoscopy was performed without difficulty. The patient toleratedthe procedure well. The quality of the bowel preparation was good. The ileocecal valve, appendiceal orifice, and rectum were photographed. Complications: No immediate complications. Estimated Blood Loss & Specimen: Estimated blood loss: none. Specimen collected - None Findings: The perianal and digital rectal examinations were normal. The entire examined colon appeared normal. Impressions/Post-Op Diagnosis: - The entire examined colon is normal. - No specimens collected. Recommendation: - Patient has a contact number available for emergencies. The signsand symptoms of potential delayed complications were discussed with the patient. Return to normal activities tomorrow. Written discharge instructions were provided to the patient. - Resume previous diet. - Continue present medications. - Repeat colonoscopy in 7-10 years for surveillance. - Resume Eliquis (apixaban) at prior dose today. Refer to managing physician for further adjustment of therapy. Moderate Sedation: A time out was performed before the procedure. Moderate (conscious) sedation was administered by the endoscopy nurse and supervised bythe endoscopist. The following parameters were monitored: oxygensaturation, heart rate, blood pressure, EKG, CO2, respiratory rate, adequacy of pulmonary ventilation and reponse to care. Please refer to the patient's medical record flowsheets and nursing notes for moderate sedation details. Total physician intraservice time was 18 minutes. Ron Mittal MD 06/27/2023 10:19:29 AM This report has been signed electronically. Note Initiated On: 06/27/2023 9:06 AM Procedure Code(s): --- Professional --- 84835, Colonoscopy, flexible; diagnostic, including collection of specimen(s) bybrushing or washing, when performed (separateprocedure) Diagnosis Code(s): --- Professional --- Z86.010, Personal history of colonicpolyps CPT copyright 2021 [employer]. All rights reserved. The codes documented in this report are preliminary and upon emergency care tech reviewmay be revised to meet current compliance requirements. Scope In: 9:51:34 AM Scope Withdrawal Time 0 hours 7 minutes 31 seconds Scope Out: 10:06:20 AM Ron Mittal MD PROCEDURE ORD Final Res ult * ANTI HCV (10/27/2020 1:39 PM CDT) HEPATITIS C ANTIBODY Non-React wale Non-React wale 10/27/2020 9:15 PM CDT [facility] Comment:Antibodies to HCV no t detected; does not exclude the possibility of exposure to HCV. Blood BLOOD SPECIMEN / Unknown Venipuncture / Unknown 10/27/2020 1:39 PM CDT 10/27/2020 1:39 PM CDT Alma Mcwilliams DO SEND OUTS Final Result [facility] [address] [place] [address], [place] from Last 3 Months or Most Recently Relevant to Health Maintenance Insurance [facility] MEDICARE [place] ONLY Member Subscriber Plan / Payer (Ef fective 2020-Present) Name:Lui Peñaloza Member ID:[id number] Relation to Subscriber:Self Name:Lui Peñaloza Subscriber ID:[id number] Payer ID:Not on file Group ID:Not on file Type:Not on file Address: ATTN: [address]S [address] MEDICARE PART B [place] ONLY Member Subscriber Plan / Payer (Ef fective 2020-Present) Name:Lui Peñaloza Member ID:[id number] Relation to Subscriber:Self Name:Lui Peñaloza Subscriber ID:[id number] Payer ID:Not on file Group ID:Not on file Type:Not on file Address: ATTN: CLAIMS [address] MEDICARE PART A [place] ONLY Member Subscriber Plan / Payer (Ef fective 2019-) Name:Lui Peñaloza Member ID:[id number] Relation to Subscriber:Self Name:Lui Peñaloza Subscriber ID:[id number] Payer ID:Not on file Group ID:Not on file Type:Not on file Address: ATTN: CLAIMS [address] Advance Directives * Full Code (Latest Code Status on File) Date Activated Date Inactivated Comments 03/13/2024 11:24 AM 03/13/2024 4:55 PM Question Answer Comments Code Status Discussion: Reviewed Preferences * Full Code Date Activated Date Inactivated Comments 05/28/2022 11:31 AM 05/28/2022 5:01 PM Question Answer Comments Code Status Discussion: Unable to Assess Preferences, Provider to review later Care Teams Assembler Tester Relationship Specialty Start Date End Date Alma Mcwilliams DO [facility] [place] [address] PCP - General Family Practice 10/27/20 Yvette Valerio MD [address] [place] [address] Medical Oncologist Oncology 06/06/22 Martha Todd, NUTRITION SERVICES ASSOCIATE [address] [place] [address] Nurse Practitioner Oncology 06/06/22 Kiara Bia, RN [address] [place] [address] 07/06/22 Taty Parker, DENISE [address] [place] [address] Nurse Navigator - Oncology Registered Nurse 01/15/23
--- OUTSIDE RECORDS SUMMARY | 2024-12-17 06:48 | XMS_ITS ---
Author Organization [facility] Address [address] [place] [address] Care Team Providers Care Painter Hand Name Role Phone Unavailable Primary Care Provider Unavailabl e Active Problems Problem Noted Date Diagnosed Date Hypokalemia 11/13/2022 Pancytopenia 11/11/2022 Hypomagnesemia 11/04/2022 Fever Neutropenic 11/03/2022 Hypertension Essential Primary 10/15/2022 Obesity Body Mass Index 30-39.9 Adult 10/15/2022 Bone Marrow Transplant Status 10/11/2022 Transplant Stem Cell 10/11/2022 Multiple Myeloma In Remission 10/11/2022 Other Senior Living Current Drug Therapy 10/11/2022 Diabetes Mellitus NOS 08/31/2022 Multiple Myeloma Not Having Achieved Remission 0 08/24/2022 Diabetes Mellitus Type 2 Without Complication 10/31/2022 Current Treatment and Therapy Plans No current plan information found. Past Treatment and Therapy Plans Apheresis Plan Name Start Date Discontinue Date Treatment Medications Discontinue Reason Plan Provider AUTOLOGOUS CELL COLLECTION 10/16/2022 10/17/2022 No medications scheduled. Therapy Complete Edgar Burrows M.D. Hem/Onc Therapy Plan 1 Plan Name Start Date Discontinue Date Treatment Medications Discontinue Reason Plan Provider PERIPHERAL BLOOD STEM CELL MOBILIZATION 10/12/2022 10/17/2022 No medications scheduled. Therapy Complete Edgar Burrows M.D. Infusion Therapy 1 Plan Name Start Date Discontinue Date Treatment Medications Discontinue Reason Plan Provider Autologous Blood and Marrow Transplant 11/03/2022 10/29/2023 No medications scheduled. Therapy Complete Olivia Walker APRN, C.N.P., D.N.P. Plerixafor (MOZOBIL) 10/11/2022 10/17/2022 No medications scheduled. Therapy Complete Edgar Burrows M.D. Cellular Therapy * Episode Name Episode Status Transplant/Infusion Date Transplant/Infusion Center Donor Information Acute GVHD Chronic GVHD Contact Auto PBSC Txp Resolved Day 2y 1m (10/26/22) [facility] N/A N/A N/A Edgar anthony M.D.Phon e: [phone]: Emai l: Kaila [email or web address] * Cell Therapy Appointments (11/16/2024 - 01/16/2025) When Visit Type With Description No appointments Lifetime Dose Tracking * Chemical Lifetime Dose Automatic Entry Manual Entr y Radiation 3.26 mGy 3.26 mGy 0 mGy Fluoro Time 0.45 minutes 0.45 minutes 0 minutes Resolved Problems Problem Noted Date Diagnosed Date Resolved Date Hyponatremia 10/31/2022 11/10/2022
--- OUTSIDE RECORDS SUMMARY | 2024-12-17 06:48 | XMS_ITS | Clinical Summary ---
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 For routine questions regarding patient records, call [phone] during business hours, M-F 8:00 AM - 5:00 PM Central Time. Record requests for emergency care only can be directed to [phone] at any time.[facility] Allergies No known active allergies Medications ondansetron (ZOFRAN) 8 mg tablet Take 8 mg by mouth every 8 (eight) hours as needed. 2 Active polyethylene glycol 3350 (MIRALAX ORAL) Activ e BD Insulin Syringe Ultra-Fine 0.3 mL 31 gauge x 5/16 syringe 3 Active traZODone (DESYREL) 50 mg tablet Take 0.5 tablets (25 mg total) by mouth at bedtime. 3 Active losartan (COZAAR) 25 mg tablet Take 1 tablet (25 mg total) by mouth daily. HOLD until seen on Station 9-4 daily 3 Active metFORMIN (GLUCOPHAGE) 500 mg tablet Take 2 tablets (1,000 mg total) by mouth 2 (two) times a day with meals. HOLD until eating and drinking are at baseline. 180 tablet 1 3 Active hydrocortisone 2.5 % ointment Apply 1 Application topically 2 (two) times a day. Apply to bilateral upper extremities twice daily. 28.35 g 3 Active flash glucose sensor (FreeStyle Danna 2 Sensor) kit Use as directed, change sensor every 14 days 6 kit 3 Active Additional Information Patient not taking.Reported on 11/14/2022 calcium carbonate-vitami n D3 (Calcium with Vitamin D) 1,500 mg (600 mg calcium)-10 mcg (400 Unit) per tablet Take 2 tablets by mouth daily with breakfast. May resume when able 3 Active cholecalciferol, vitamin D3, (cholecalciferol ) 25 mcg (1,000 Unit) tablet Take 25 mcg by mouth daily. May resume when able 3 Active pediatric multivitamin no.76 (Flintstones Complete) tablet,chewable Chew 1 tablet daily. May resume 3 Active UNABLE TO FIND Take 1 each by mouth at bedtime. Med Name: Nervive; on HOLD 3 Active insulin degludec (TRESIBA Flextouch) 100 unit/mL (3 mL) injection Inject 10 Units under the skin at bedtime. 15 mL 3 Active gabapentin (NEURONTIN) 300 mg capsule Take 1 capsule (300 mg total) by mouth 2 (two) times a day. 300 mg in am and 600 mg at HS 3 Active acyclovir (ZOVIRAX) 400 mg tablet Take 1 tablet (400 mg total) by mouth 2 (two) times a day. Take for one year post transplant 60 tablet 11 11/16/2022 12:55 PM CDT 3 Active sulfamethoxazole -trimethoprim (BACTRIM) 400-80 mg per tablet Take 1 tablet by mouth daily. Take until day 100 71 tablet 11/15/2022 4:35 PM CDT 3 Active penicillin V potassium (VEETIDS) 500 mg tablet Take 1 tablet (500 mg total) by mouth 2 (two) times a day. Take for one year post transplant 60 tablet 11 3 Active apixaban (Eliquis) 5 mg tablet Take 10 mg by mouth. 3 Active Active Problems Problem Noted Date Diagnosed Date Hypokalemia 11/13/2022 Pancytopenia 11/11/2022 Hypomagnesemia 11/04/2022 Fever Neutropenic 11/03/2022 Hypertension Essential Primary 10/15/2022 Obesity Body Mass Index 30-39.9 Adult 10/15/2022 Bone Marrow Transplant Status 10/11/2022 Transplant Stem Cell 10/11/2022 Multiple Myeloma In Remission 10/11/2022 Other [facility] Current Drug Therapy 10/11/2022 Diabetes Mellitus NOS 08/31/2022 Multiple Myeloma Not Having Achieved Remission 0 08/24/2022 Diabetes Mellitus Type 2 Without Complication 10/31/2022 Resolved Problems Problem Noted Date Diagnosed Date Resolved Date Hyponatremia 10/31/2022 11/10/2022 Encounters Date Type Department Care Team Description 10/19/2024 4:35 PM CDT - 10/19/2024 11:59 PM CDT Hospital Encounter Department of Laboratory Medicine and Pathology, [facility], in [place], [place] [address] [place] [address] Edgar Burrows M.D. Multiple Myeloma Not Having Achieved Remission (HCC) Discharge Disposition: Home or Self Care from Last 3 Months Social History Tobacco Use Types Packs/Day Years Used Date Smoking Tobacco: Never Smokeless Tobacco: Never Tobacco Cessation:Counseling Given: Not Answered Alcohol Use Standard Drinks/Week Comments Not Currently 0 (1 standard drink = 0.6 oz pur e alcohol) [facility] Utilities Answer Date Recorded In the past 12 months has e N42, gas, oil, or water [employer] threatened to shut off services in your home? No 01/05/2024 Humiliation, Afraid, Rape, and Kick questionnair e Answer Date Recorded Within the last year, have y ou been afraid of your partner or ex-partner? No 08/22/2022 Within the last year, have y ou been humiliated or emotionally abused in other ways by your partner or ex-partner? No Within the last year, have y ou been kicked, hit, slapped, or otherwise physically hurt by your partner or ex-partner? No 08/22/2022 Within the last year, have y ou been raped or forced to have any kind of sexual activity by your partner or ex-partner? No 08/22/2022 Social Connection and Isolat ion Panel [NHANES] Answer Date Recorded In a typical week, how many times do you talk on the phone with family, friends, or neighbors? Twice a week 08/22/2022 How often do you get togethe r with friends or relatives? Once a week 08/22/2022 How often do you attend chur ch or yazidism services? More than 4 times per year 08/22/2022 Do you belong to any clubs o r organizations such as worship groups, unions, fraternal or athletic groups, or school groups? No 08/22/2022 How often do you attend meet ings of the clubs or organizations you belong to? Never 08/22/2022 Are you , , di vorced, , never , or living with a partner? 08/22/2022 AUDIT-C Answer Date Recorded Q1: How often do you have a drink containing alc ohol? Monthly or less 08/22/2022 Q2: How many drinks containi ng alcohol do you have on a typical day when you are drinking? 1 or 2 08/22/2022 Q3: How often do you have si x or more drinks on one occasion? Never 08/22/2022 Overall Financial Resource Strain (CARDIA) Answe r Date Recorded How hard is it for you to pa y for the very basics like food, housing, medical care, and heating? Not hard at all 08/22/2022 PHQ-2 Answer Date Recorded PHQ-2 Score 0 08/22/2022 [facility] - Occupational Stress Questionnaire Answer Date Recorded Do you feel stress - tense, restless, nervous, or anxious, or unable to sleep at night because your mind is troubled all the time - these days? Only a little 08/22/2022 Exercise Vital Sign Answer Date Recorde d On average, how many days pe r week do you engage in moderate to strenuous exercise (like a brisk walk)? 7 days 01/05/2024 On average, how many minutes do you engage in exercise at this level? 90 min 01/05/2024 Hunger Vital Sign Answer Date Recorded Within the past 12 months, y ou worried that your food would run out before you got the money to buy more. Never true 01/05/20 24 Within the past 12 months, t he food you bought just didn't last and you didn't have money to get more. Never true 01/05/2024 PRAPARE - Transportation Answer Date Re corded In the past 12 months, has l ack of transportation kept you from medical appointments or from getting medications? No 12/08 In the past 12 months, has l ack of transportation kept you from meetings, work, or from getting things needed for daily living? No 01/05/2024 Nutrition Answer Date Recorded On average, how many serving s of fruits and vegetables do you eat per day (serving size is equal to 1 cup or approximately the size of a tennis ball)? 0-2 01/05/2024 Dental Answer Date Recorded Dental: Regular Dentist Yes 08/22/19 Employment Answer Date Recorded Employment status Retired 01/05/2024 Housing Stability Answer Date Recorded What is your living situation today? I have a [facility] place to live 01/05/2024 Education Answer Date Recorded What is the highest level of school you have completed or the highest degree you have received? 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 Last Filed Vital Signs Vital Sign Reading Time Taken Comments Blood Pressure 150/81 01/06/2024 4:13 PM CDT Pulse 59 01/06/2024 4:13 PM CDT Temperature 36.1 C (97 F) 01/06/2024 4:13 PM CDT Respiratory Rate 11 12/24/2022 10:16 AM CDT Oxygen Saturation 98% 12/24/2022 10:16 AM CDT Inhaled Oxygen Concentration - - Weight 103 kg (226 lb 6.6 oz) 01/06/2024 4:13 PM CDT Height 170.2 cm (5' 7.01) 01/06/2024 4:13 PM CD T Body Mass Index 35.45 01/06/2024 4:13 PM CDT Plan of Treatment Upcoming Encounters Date Type Department Care Team (Latest Contact Info) Description 01/06/2025 10:00 AM CDT Clinical Communication Virtual Review in [place], [place] [address] [place] [address] 01/11/2025 8:00 AM CDT Lab Department of Laboratory Medicine and Pathology, [facility], in [place], [place] [address] [place] [address] Edgar Burrows M.D. [address] [place] [phone] 01/11/2025 9:15 AM CDT Appointment Department of Radiology, [facility], in [place], [place] [address] [place] [address] Edgar Burrows M.D. [address] [place] [phone] 01/11/2025 2:30 PM CDT Office Visit Division of Hematology in [place], [place] [address] [place] [address] Edgar Burrows M.D. [address] [place] [phone] Health Maintenance Due Date Last Done Comments CT Colonography 1952 Cologuard 1952 Diabetic Office Visit with Foot Exam 1952 Dilated Eye Exam 1952 FIT 1952 Urine Albumin 1952 Lipid (Cholesterol) Screening 04/28/2022 04/28/2021, 2019, 11/04/2018 COVID-19 Vaccine ( season) 2024 05/13/2023, 03/29/2022, 10/31/2021, Additional history exists IPV Vaccines (3 of 3 - Adult catch-up series) 03/18/2024 09/16/2023, 07/19/2023, 05/13/2023 Office Visit for Blood Pressure Check / Re-check 04/07/2024 01/06/2024 Depression Screening (Annual PHQ-2) 07/08/2024 Fall Risk Screen (Annual) 07/08/2024 Hemoglobin A1C 02/03/2025 08/06/2024, 10/2 03/2024, 08/05/2023, Additional history exists Creatinine Level (Kidney Function Test) 10/05/2025 10/05/2024, 09/08/2024, 08/11/2024, Additional history exists Potassium Level 10/05/2025 10/05/2024, 03/0 10/2024, 08/11/2024, Additional history exists Sodium Level 10/05/2025 10/05/2024, 03/0 10/2024, 08/11/2024, Additional history exists Colonoscopy 06/27/2033 06/27/2023 Colorectal Cancer Screening 06/27/2033 DTaP,Tdap,and Td Vaccines (5 - Td or Tdap) 09/15/2033 09/16/2023, 07/04/2023, 04/29/2023, Additional history exists Hepatitis C Screening Completed 10/08/2022 Pneumococcal vaccine (50+ years) Completed 04/29/2023, 06/10/2019, 03/18/2018 Zoster Vaccines Completed 07/19/2023, 1112/2022, 2019, Additional history exists Hepatitis B Vaccines Completed 11/18/2023, 07/19/2023, 05/13/2023 Influenza Vaccine Completed 04/02/2024, , 03/29/2022, Additional history exists HPV Vaccines Aged Out No longer eligi ble based on patient's age to complete this topic Procedures Procedure Name Priority Date/Time Associated Diagnosis Comments ELECTROPHORESIS, PROTEIN, 24 HR, U Routine 11/26/2024 11:50 AM CDT Multiple Myeloma Not Having Achieved Remission (HCC) SODIUM, S/P Routine 01/06/2024 10:04 AM CDT Multiple Myeloma Not Having Achieved Remission (HCC) POTASSIUM, S/P Routine 01/06/2024 10:04 AM CDT Multiple Myeloma Not Having Achieved Remission (HCC) CREATININE WITH EGFR, S/P Routine 01/06/2024 10:04 AM CDT Multiple Myeloma Not Having Achieved Remission (HCC) HEMOGLOBIN A1C, B Routine 10/08/2022 8:4 7 AM CDT Multiple Myeloma In Remission (HCC) Transplant Stem Cell (HCC) MBC TISSUE DONOR SCREEN TEST SET Routine 10/08/2022 8:46 AM CDT Multiple Myeloma In Remission (HCC) Transplant Stem Cell (HCC) from Last 3 Months or Most Recently Relevant to Health Maintenance Results * (ABNORMAL) Electrophoresis, Protein, 24 hour, Urine (11/26/2024 11:50 AM CDT) Total Protein, 24 HR, U 320(H) <229 mg/24 h 12/01/2024 12:24 PM CDT DTL Collection Duration 24 h 12/01/2024 10:21 AM CDT DTL Urine Volume 1600 mL 12/01/2024 10:21 AM CDT DTL Albumin, mg/24 h 64.0 mg/24 h 12/03/2024 3:34 PM CDT SDSC Alpha-1 globulin, mg/24 h 22.4 mg/24 h 12/03/2024 3:34 PM CDT SDSC Alpha-2 globulin, mg/24 h 76.8 mg/24 h 12/03/2024 3:34 PM CDT SDSC Beta globulin, mg/24 h 99.2 mg/24 h 12/03/2024 3:34 PM CDT SDSC Gamma globulin, mg/24 h 54.4 mg/24 h 12/03/2024 3:34 PM CDT SDSC A/G Ratio 0.25 12/03/2024 3:34 PM CDT SDSC Impression All fractions present, no apparent M-spike. 12/03/2024 3:34 PM CDT SDSC Urine (Urine, 24 Hours) 11/26/2024 11:50 AM CDT 12/01/2024 1:56 PM CDT Narrative Resulting Agency Comment Mailed In Specimen us Edgar Burrows M.D. LAB URINE ORDERABLES Fi nal Result [facility] [address] [place] [address] [facility] [address] [place] [address] [facility] [address] [place] [address] [place] [address] * (ABNORMAL) Hemoglobin A1c (10/08/2022 8:47 AM CDT) [facility] Hemoglobin A1c, B 7.2(H) 4.0 - 5.6 % 10/08/2022 9:29 AM CDT DTL Comment: Hemoglobin A1c values greater than or equal to 6.5 percent are diagnostic for diabetes mellitus. Diagnosis should be confirmed by repeat testing. In diabetic patients, HbA1c goals should be discussed with healthcare provider. Blood (Blood, Venous) 10/08/2022 8:47 AM CDT 10/08/2022 8:55 AM CDT us Dhiraj Moreira APRN, C.N.P., M.S.N. LAB BLOOD A DD-ON Final Result [facility] [address] [place] [address], [facility] [address] [place] [address] * MBC Tissue Donor Screen Test (10/08/2022 8:46 AM CDT) [facility] HBsAg Screen Donor Non-reactiv e 10/10/2022 2:57 PM CDT MBC HBc Total Ab Donor Non-reactiv e 10/10/2022 2:57 PM CDT MBC HBV JOSE Individual Donor Non-reactiv e 10/10/2022 2:57 PM CDT MBC HCV JOSE Individual Donor Non-reactiv e 10/10/2022 2:57 PM CDT MBC HIV-1 JOSE Individual Donor Non-reactiv e 10/10/2022 2:57 PM CDT MBC HIV-1/-2 Plus O Ab Screen Donor Non-reactiv e 10/10/2022 2:57 PM CDT MBC HCV Ab Screen Donor Non-reactiv e 10/10/2022 2:57 PM CDT MBC HTLV-I/-II Ab Screen Donor Non-reactiv e 10/10/2022 2:57 PM CDT MBC T. cruzi Total Ab Donor Non-reactiv e 10/10/2022 2:57 PM CDT MBC Syphilis Ab Screen Donor Non-reactiv e 10/10/2022 2:57 PM CDT MBC Comment: This test is done by the Microhemagglutination assay- Treponema pallidum (MHA-TP) method. CMV Total Ab Donor Negative 2022 2:57 PM CDT MBC West Nile Virus JOSE Donor Non-reactiv e 10/10/2022 2:57 PM CDT [facility] Comment: Failure to detect WNV RNA does not rule out the possibility of West Nile virus infection. This result should be evaluated in the context of the individual's risk factors and clinical findings. Blood (Blood, Venous) 10/08/2022 8:46 AM CDT 10/08/2022 8:56 AM CDT [facility] DONOR TESTING AND [facility] - 10/10/2022 2:57 PM CDT Specimen Information: Specimen ID: [id number] Specimen Type: Blood Specimen Collection Start Date: 10/08/2022 8:46 AM Specimen Received Date: 10/08/2022 8:56 AM Specimen ID: [id number] Specimen Type: Blood Specimen Collection Start Date: 10/08/2022 8:46 AM Specimen Received Date: 10/08/2022 8:56 AM Specimen ID: [id number] Specimen Type: Blood Specimen Collection Start Date: 10/08/2022 8:46 AM Specimen Received Date: 10/08/2022 8:56 AM Specimen ID: [id number] Specimen Type: Blood Specimen Collection Start Date: 10/08/2022 8:46 AM Specimen Received Date: 10/08/2022 8:56 AM Dhiraj Moreira APRN, C.N.P., M.S.N. LAB BLOOD N ON ADD-ON Final Result [facility] DONOR TESTING AND [facility] [address] [facility] [place] [address], [facility], Donor Testing and [facility] Lab [address] [place] [address] from Last 3 Months or Most Recently Relevant to Health Maintenance Insurance [facility] MEDICARE Advance Directives For more information, please contact: [phone] * Full Code (Latest Code Status on File) Date Activated Date Inactivated Comments 11/04/2022 2:11 PM 11/07/2022 4:25 PM Question Answer Comments Full Code: Discussed
--- NOTE | 2024-12-17 07:01 | CRLHL7_ITS ---
For Patients: As a result of the Century Cures Act, medical imaging exams and procedure reports are released immediately into your electronic medical record. You may view this report before your referring provider. If you have questions, please contact your health care provider. INDICATION: Hypoxia, crackles and guarding left abdomen TECHNIQUE: CT chest, abdomen and pelvis acquired with 95 cc Isovue 370 intravenous contrast. COMPARISON: None. FINDINGS: CHEST: Cardiovascular structures: Thoracic aorta is normal in caliber. Severe coronary atherosclerosis. No pericardial effusion. Limited evaluation of the pulmonary arteries secondary to respiratory motion although grossly unremarkable. Mediastinum and carol: Subcentimeter mediastinal lymph nodes with calcified right hilar lymph nodes. Lungs and pleura: Peribronchovascular nodularity bilaterally, far greater on the left with more dense consolidation within the lingula and left lower lobe. Chest wall and axilla: No mass or adenopathy. Bones: No suspicious bone lesions. Unremarkable for age. ABDOMEN AND PELVIS: Liver: Unremarkable. Gallbladder and bile ducts: Unremarkable. Pancreas: Unremarkable. Spleen: Unremarkable. Adrenal glands: Unremarkable. Kidneys: Symmetric renal enhancement with nonobstructing nephrolithiasis in the left kidney with a notable 19 x 13 millimeter stone within a lower pole calyx. Subcentimeter hypodense lesion left kidney, too small for characterization. GI tract: Stomach is unremarkable. No dilated loops of large or small intestine. Fluid noted within the colon. Vascular structures: Atherosclerosis without abdominal aortic aneurysm. Lymph nodes: Unremarkable. Miscellaneous: Lipoma anterior right thigh measuring 2.5 centimeters. Pelvic Organs: Unremarkable. Bones: No suspicious bone lesions. Unremarkable for age. IMPRESSION: 1. Bilateral peribronchovascular nodularity with more dense consolidation within the lingula and left lower lobe consistent with an infectious bronchiolitis/bronchopneumonia. 2. Fluid noted throughout the colon which can be seen in enteritis/diarrheal illness. 3. Nonobstructing nephrolithiasis. Please note that all CT scans at this facility use dose modulation, iterative reconstruction, and/or weight-based dosing when appropriate to reduce radiation dose to as low as reasonably achievable. Dictated by Ciro Banks MD @ 12/17/2024 8:19:17 AM (Electronically Signed)
--- NOTE | 2024-12-17 07:01 | CRLHL7_ITS ---
For Patients: As a result of the Century Cures Act, medical imaging exams and procedure reports are released immediately into your electronic medical record. You may view this report before your referring provider. If you have questions, please contact your health care provider. INDICATION: Altered mental status, hypoxia, crackles and guarding. TECHNIQUE: CT head without contrast. COMPARISON: None. FINDINGS: Motion degraded limited exam. Hyperdensity within bilateral basal ganglia and dentate nuclei likely related to calcification. Otherwise, no intracranial hyper density to suspect hemorrhage. No abnormal extra-axial fluid collection or midline shift. The mcdonald-white matter is well differentiated within the limits of the examination. Mucosal thickening in the left greater than right maxillary sinus and ethmoidal air cells. No mastoid effusion. No calvarial fracture. IMPRESSION: 1. Hyperdensity within bilateral basal ganglia and dentate nuclei, likely calcification. 2. No acute intracranial abnormality within the limit of examination. Please note that all CT scans at this facility use dose modulation, iterative reconstruction, and/or weight-based dosing when appropriate to reduce radiation dose to as low as reasonably achievable. Dictated by Effie Gabriel MD @ 12/17/2024 7:43:33 AM (Electronically Signed)
--- NOTE | 2024-12-17 07:02 | ED.GENADULT ---
HPI - General Adult General Chief complaint: Weakness Stated complaint: been feeling sick, oxygen Time Seen by Provider: 12/17/24 06:54 History of Present Illness HPI narrative: 74-year-old male presents to emergency department with reported weakness. No fever. Uncertain etiology. No recent localizing infection. Noted to be hypoxic at around 80%, placed on 10 L by EMS. Confuse and generally globally very weak at the scene. Patient is not able to answer questions clearly about when he became sick. He initially says which is today and then Saturday. He is not able to relay the order of his symptoms and seems to get confused fairly easily though he is attempting to follow conversation and participate in exam. No obvious aphasia, aggression or asymmetric deficit. A quick review of the chart shows that he has a history of multiple myeloma and he has been placed on anticoagulation because of prior DVT. Patient cannot list his medications for me at this moment due to his acutely critical condition. Medication list accompanies from EMS which I will have to review. No additional information from EMS team or patient. Past medical history notable for diabetes that was the only thing he could report to me. Review of the record shows multiple myeloma, prior DVT, multiple others. Last ED visit was 2 years ago, also reviewed. ROS unreliable by patient just notable for ?sickness?. Otherwise not obtainable times 12 systems to acute condition Related Data Home Medications ?Medication ?Instructions ?Recorded ?Confirmed acyclovir 400 mg tablet 400 mg PO BID 12/13/24 12/17/24 insulin degludec 100 unit/mL (3 11 unit subcut Q24H 12/13/24 12/17/24 mL) subcutaneous pen metformin 500 mg tablet,extended 1,000 mg PO BID 12/13/24 12/17/24 release 24 hr potassium chloride 20 mEq oral 20 meq PO BID 12/13/24 12/17/24 packet pregabalin 75 mg capsule 75 mg PO BID 12/13/24 12/17/24 apixaban 5 mg tablet (Eliquis) 5 mg PO BID 12/17/24 12/17/24 lenalidomide 10 mg capsule 10 mg PO DAILY 12/17/24 12/17/24 (Revlimid) Held on 12/21/24. Instructions: Resume on 12/30/24. hold this until you see or talk to your oncologist sulfamethoxazole 400 1 tab PO DAILY 12/17/24 12/17/24 mg-trimethoprim 80 mg tablet Held on 12/21/24. Instructions: Resume on 12/30/24. after you finish the levaquin Previous Rx's ?Medication ?Instructions ?Recorded guaifenesin 600 mg tablet, 1,200 mg (2 x 600 mg) PO BID #30 12/21/24 extended release 12 hr (Mucinex) tabs ipratropium 0.5 mg-albuterol 3 mg 3 ml inhalation Q6H PRN #90 mL 12/21/24 (2.5 mg base)/3 mL nebulization soln levofloxacin 500 mg tablet 500 mg PO Q24H #10 tabs 12/21/24 nebulizer and compressor #1 ea 12/21/24 (All-In-One Nebulizer System) prednisone 20 mg tablet 40 mg (2 x 20 mg) PO DAILYWM #6 12/21/24 tabs Allergies Allergy/AdvReac Type Severity Reaction Status Date / Time No Known Drug Allergies Allergy Verified 12/17/24 08:03 [facility] Medical History (Updated 12/21/24 @ 16:14 by Latosha Whiting MD) Immunocompromised ?D84.9 - Immunodeficiency, unspecified (ICD-10) Peripheral neuropathy ?G62.9 - Polyneuropathy, unspecified (ICD-10) Deep venous thrombosis ?I82.409 - Acute embolism and thrombosis of unspecified deep veins of unspecified lower extremity (ICD-10) Chronic anticoagulation ?Z79.01 - long-term (current) use of anticoagulants (ICD-10) Diabetes mellitus ?E11.9 - Type 2 diabetes mellitus without complications (ICD-10) Multiple myeloma ?C90.00 - Multiple myeloma not having achieved remission (ICD-10) Surgical History (Updated 12/17/24 @ 15:44 by Joseph Oglesby MD) History of colonoscopy ?Z98.890 - Other specified postprocedural states (ICD-10) History of tonsillectomy ?Z90.89 - Acquired absence of other organs (ICD-10) History of stem cell transplant ?Z94.84 - Stem cells transplant status (ICD-10) History of umbilical hernia repair ?Z98.890 - Other specified postprocedural states (ICD-10) ?Z87.19 - Personal history of other diseases of the digestive system (ICD-10) Family History (Updated 12/17/24 @ 15:44 by Joseph Oglesby MD) Father Colon cancer Brother Diabetes Social History (Updated 12/17/24 @ 15:46 by Joseph Oglesby MD) Narrative: He lives in [place] with his and daughter. 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 His code status is full. 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 He does not smoke. He alcohol rarely drinks What is your current living situation?: I presently have a place to live Problems where you live: no known problems Problems where you live details: none In the past 12 months, utilities in danger of being shut off: no In past 12 months, lack of transportation kept you from medical appts, meetings, work, or getting things needed for daily living: no In the past 12 mos, have been you worried that your food would run out before you had money to buy more?: never true In the past 12 mos, the food you bought just didn't last and you didn't have money to buy more?: never true Smoking Status: Never smoker Do you use any of these nicotine containing products: None Second hand tobacco smoke exposure: Yes How often do you have a drink containing alcohol: monthly or less How many standard drinks containing alcohol do you have on a typical day: 1 or 2 How often do you have six or more drinks on one occasion: Never AUDIT-C Alcohol total score: 1 Non-prescribed substance use: denies use How often does anyone, including family, friends and others, physically hurt you: never How often does anyone, including family, friends and others, insult or talk down to you: never How often does anyone, including family, friends and others, threaten you with harm: never How often does anyone, including family, friends and others, scream or curse at you: never service: No Exam Const: Vital Signs, click to edit/add: Vital Signs - 24 hr 12/17/24 06:55 12/17/24 06:57 12/17/24 06:59 Temperature 99.0 F Pulse Rate [Right Pulse Oximeter] 82 Respiratory Rate 36 H Blood Pressure [Le ft Upper Arm] 159/78 H Pulse Oximetry 96 98 96 Oxygen Delivery Me thod High Flow Nasal Ca nnula Non Rebreath er Mask Non Rebreather Mas k Oxygen Flow Rate 10 10 Documenting provider has reviewed patient's vital signs: yes Common normals: alert Exam limitations: altered mental status General appearance: well kempt Other: Confuse, attempts to answer questions but they are not quite fitting appropriate time line. He is polite and cooperative, no agitation. Seems tachypneic, pale and very weak. HENMT: Common normals: normocephalic, nasal mucous membranes and turbinates normal, moist oral mucous membranes and oropharynx normal Head and scalp: normocephalic Face and sinus: normal facial exam Nose: nasal mucous membranes and turbinates normal Mouth: oral and palatal mucosa normal Eye: Common normals: conjunctivae normal General eye: normal appearance of both eyes Conjunctiva: conjunctiva(e) normal Neck & C-Spine: Common normals: full ROM, no lymphadenopathy and no meningeal signs Chest: Common normals: inspection of chest normal Resp: Other: Tachypneic with increased respiratory effort. Poor air movement throughout. Crackles noted at left base. No wheeze. Cardio: Common normals: regular rate, regular rhythm, S1 normal heart sound, S2 normal heart sound and no murmurs Rate: regular rate Rhythm: regular rhythm Heart sounds: S1 normal and S2 normal GI: Common normals: Normal to inspection, nondistended, normoactive bowel sounds present Other: Some tenderness to palpation of left abdomen but it was not reproducible on multiple attempts. Certainly no true guarding. Extremity: Common normals: normal to inspection and normal capillary refill Other: Can move arms and legs symmetrically but globally weak. No obvious focal acute neurological deficit. Neuro: Common normals: moves all extremities Sensorium/orientation: alert Meningeal signs: no meningeal signs Speech: speech normal Other: Generalized global weakness, also confirmed by EMS team. Psych: Appearance: well kempt Attitude: calm Insight: fair Judgement: fair Skin: Common normals: no rashes or lesions noted General skin exam: no rashes or lesions noted Course Course ED Course: Patient arrived by EMS, O2 sats were noted to be 80%, no on non-rebreather here in the ED, sats are 95-96%. Patient with confusion and abnormal mentation concern for possible underlying sepsis, neurological event, delirium of other sorts. Unsure of etiology. No hypotension to suggest sepsis. I quickly reviewed his outside records and see the has a history of multiple myeloma and has had a prior DVT. His medication list indicates that he is on apixaban but it only shows a starter pack, I do not see if he has remained on this medication. This certainly could be a thrombotic event as well. I do not see any hematological records in our system. It looks like he might get his care through a different health system. In his confused state, it is difficult for him to tell me these things. At this time is not requiring intubation has his O2 sats have improved but he is certainly very tachypneic and at risk for respiratory failure. Will continue supplemental oxygen, continuous oximetry, obtain EKG, typical intra-abdominal, sepsis labs, bolus 1 L fluid, CT of the head without contrast, CT of the chest abdomen and pelvis with contrast, point of care creatinine. Reevaluation(s) Time of Reevaluation #1: 08:28 Reevaluation #1: Patient is mentating much better, speaking full sentences. His respiratory rate is still elevated but has come down a bit. We have transitioned onto high-flow oxygen. He still has crackles in the base on auscultation will give steroids, DuoNeb and start Zosyn. He now tells me that he was exposed to strep from his grandkids in [place], did have a negative strep test 4 days ago. He is still on treatment for multiple myeloma and therefore is still on immunosuppressant therapy. Update: 914: Accepted by hospitalist. Vital Signs Vital signs: Initial Vital Signs Pulse Oximetry 96 12/17/24 06:55 Oxygen Delivery Method High Flow Nasal Cannula, Non Rebreather Mask 12/17/24 06:55 Oxygen Flow Rate 10 12/17/24 06:55 Vital Signs Pulse Oximetry 96 12/17/24 06:55 Oxygen Delivery Method High Flow Nasal Cannula, Non Rebreather Mask 12/17/24 06:55 Oxygen Flow Rate 10 12/17/24 06:55 Temperature 97.7 F 12/21/24 11:09 Pulse Rate 68 12/21/24 11:09 Respiratory Rate 18 12/21/24 11:09 Blood Pressure 132/68 12/21/24 09:18 Pulse Oximetry 93 12/21/24 11:09 Oxygen Delivery Method High Flow Nasal Cannula 12/21/24 11:09 Oxygen Flow Rate 21 12/21/24 11:09 Fraction of Inspired Oxygen 35 12/21/24 11:09 Medications Administered Medications: Discontinued Medications Generic Name Dose Route Start Last Admin Trade Name Freq PRN Reason Stop Dose Admin Acetaminophen 650 mg 12/17/24 12:16 12/18/24 19:24 Acetaminophen 325 Mg Tablet PO 650 mg Q4H PRN Administration Acyclovir 400 mg 12/17/24 21:00 12/21/24 09:39 Acyclovir 200 Mg Capsule PO 400 mg BID EMILY Administration Albuterol/Ipratropium 1 neb 12/17/24 08:05 12/17/24 08:10 Iprat-Albut 0.5-2.5 Mg/3 Ml Neb IH 12/17/24 08:06 1 neb ONCE ONE Administration Albuterol/Ipratropium 1 neb 12/18/24 09:05 12/21/24 09:39 Iprat-Albut 0.5-2.5 Mg/3 Ml Neb 1 neb QID EMILY Administration Apixaban 5 mg 12/17/24 21:00 12/21/24 09:39 Apixaban 5 Mg Tablet PO 5 mg BID EMILY Administration Azithromycin 500 mg 12/17/24 12:16 12/19/24 11:20 Azithromycin 250 Mg Tablet PO 500 mg Q24H EMILY Administration Guaifenesin 100 - 200 mg 12/18/24 16:25 12/18/24 17:05 Guaifenesin 100 Mg/Ml Cup PO 200 mg Q4H PRN Administration Cough Guaifenesin 1,200 mg 12/20/24 21:00 12/21/24 09:38 Guaifenesin 600 Mg Tab.Er.12h PO 1,200 mg BID EMILY Administration Sodium Chloride 1,000 mls @ 1,000 mls/hr 12/17/24 07:00 12/17/24 10:04 0.9 % Sodium Chloride 1000 Ml IV 12/17/24 07:59 Infused .Q1H EMILY Infusion Piperacillin Sod/Tazobactam 100 mls @ 200 mls/hr 12/17/24 08:05 12/17/24 08:56 Sod 3.375 gm/ Sodium Chloride IVPB 12/17/24 08:06 Infused ONCE ONE Infusion Piperacillin Sod/Tazobactam 100 mls @ 200 mls/hr 12/17/24 14:00 12/19/24 15:40 Sod 3.375 gm/ Sodium Chloride IVPB Infused Q6H EMILY Infusion Insulin Aspart 0 unit 12/17/24 17:30 12/21/24 09:37 Insulin Aspart 100 Unit/Ml SUBCUT Not Given ACHS [facility] Protocol Levofloxacin 500 mg 12/19/24 21:00 12/20/24 21:18 Levofloxacin 500 Mg Tablet PO 500 mg Q24H EMILY Administration Metformin HCl 1,000 mg 12/17/24 21:00 12/21/24 09:39 Metformin Er 500 Mg PO 1,000 mg BID EMILY Administration Methylprednisolone Sodium Succinate 60 mg 12/17/24 08:05 12/17/24 08:27 Methylprednisolone Sod Succ 40 Mg/Ml IVP 12/17/24 08:06 60 mg ONCE ONE Administration Insulin Degludec 100 11 unit 12/17/24 19:00 12/20/24 19:34 Unit/Ml (3 Ml) SUBCUT 11 unit Insulin Pen Q24H EMILY Administration Potassium Chloride 20 meq 12/17/24 21:00 12/21/24 09:38 Potassium Chloride 10 Meq Capsule Er PO 20 meq BID EMILY Administration Prednisone 40 mg 12/20/24 08:45 12/21/24 09:37 Prednisone 20 Mg Tablet PO 12/24/24 08:01 40 mg DAILYWM MEILY Administration Pregabalin 75 mg 12/17/24 21:00 12/21/24 09:39 Pregabalin 75 Mg Capsule PO 75 mg BID EMILY Administration Sodium Chloride 5 ml 12/17/24 21:00 12/21/24 09:40 Sodium Chloride 0.9 % (Flush) 10 Ml Syringe IVF 5 ml BID EMILY Administration Medical Decision Making [facility] Narrative Medical decision making narrative: Patient meeting criteria for sepsis but with altered mental status is showing some signs of possible end-organ damage. Concern for underlying sepsis pathology. Will begin fluid bolus. I will base this on his ideal body weight as he is quite obese. Re-evaluate after 1 L due to his hypoxia as he is not currently hypotensive. Lab Data Lab results reviewed: Yes I reviewed the patient's lab results Lab results narrative: Initial white count slightly low, not trustworthy due to his multiple myeloma. D-dimer elevated, uncertain significance. PH relatively normal for the amount of oxygen he is on, no acidosis. Blood cultures are pending. Electrolytes and kidney function stable for patient. CRP markedly elevated. Labs: Lab Results 12/17/24 12/17/24 12/17/24 Range/Units 06:51 06:55 09:03 WBC 2.39 L (4.50-11.00) K/uL RBC 3.47 L (4.30-5.90) m/uL Hgb 11.3 L (13.5-17.5) gm/dL Hct 32.6 L (37.0-53.0) % MCV 94 (80-100) fL MCH 33 (26-34) pg MCHC 35 (32-36) gm/dL RDW Coeff of Yamil 15.3 (11.5-15.5) % Plt Count 110 L (140-440) K/uL Neut % (Auto) 74.5 H (42.0-72.0) % Lymph % (Auto) 6.3 L (20-44) % Amelia % (Auto) 10.9 (0.0-11.0) % Eos % (Auto) 7.1 H (0.0-7.0) % Baso % (Auto) 0.4 (0.0-3.0) % Neut # (Auto) 1.80 (1.7-7.0) K/uL Lymph # (Auto) 0.20 L (0.90-2.90) K/uL Amelia # (Auto) 0.30 (0.00-0.90) K/UL Eos # (Auto) 0.20 (0.00-0.50) K/uL Baso # (Auto) 0.00 (0.00-0.30) K/uL Abs Immat Gran (auto) 0.00 (0.00-0.30) K/uL Imm/Tot Granulo (auto) 0.8 % D-Dimer Quant (PE/DVT) 1.74 H (0.00-0.50) ug/ml VBG pH 7.447 H (7.32-7.43) VBG pCO2 36 L (40-50) mmHG VBG pO2 57.6 H (25-47) mmHG VBG HCO3 25 (21-28) mmol/L Sodium 130 L (135-149) mmol/L Potassium 4.2 (3.6-5.1) mmol/L Chloride 99 (96-114) mmol/L Carbon Dioxide 22 (20-32) mmol/L Anion Gap 9 (7-15) mEq/L BUN 14 (7-30) mg/dL Creatinine 1.0 (0.5-1.5) mg/dL Estimated Creat Clear 64.60 Estimated GFR 80 ml/min Glucose 193 H (60-115) mg/dL Lactate 2.4 H (0.5-1.9) mmol/L Calcium 8.1 L (8.4-10.6) mg/dL Magnesium 1.0 L (1.5-2.6) mg/dL Total Bilirubin 1.5 (0.1-1.5) mg/dL AST 44 H (12-35) U/L ALT 28 (4-50) U/L Alkaline Phosphatase 173 H (40-150) U/L C-Reactive Protein 14.8 H (0.5-1.0) mg/dL Total Protein 5.9 L (6.0-8.3) g/dL Albumin 3.6 (3.3-5.0) g/dL Lipase 466 H (23-300) U/L Procalcitonin 0.31 (<0.50) ng/mL Urine Color Yellow (Yellow) Urine Appearance Clear (Clear) Urine pH 6.0 (5.0-8.5) Ur Specific Otto 1.010 (1.000-1.030) Urine Protein 2+ A (Negative) Urine Glucose (UA) 1+ A (Negative) Urine Ketones Trace A (Negative) Urine Blood 2+ A (Negative) Urine Nitrite Negative (Negative) Urine Bilirubin Negative (Negative) Urine Urobilinogen 0.2 (0.2-1.0) Ur Leukocyte Esterase Negative (Negative) Urine RBC 5-10 A (0-2) Urine WBC 0-2 (0-5) Ur Squamous Epith Cells Few (None-Few) Amorphous Sediment Few A (None) Urine Bacteria Few A (None) Urine L. pneumophilia Ag L. pneumo Negative (Negative) Urine Strep pneumoniae Ag S. pneumo Negative (Negative) SARS-CoV-2 (PCR) Negative SARS-CoV-2 (Negative) Influenza Type A (PCR) Negative PCR FLU A (Negative) Influenza Type B (PCR) Negative PCR FLU B (Negative) RSV (PCR) Negative PCR RSV (Negative) POC Creatinine 1.2 (0.6-1.3) mg/dl POC Troponin I 0.01 (0.01-0.04) ng/ml 12/17/24 Range/Units 09:07 WBC (4.50-11.00) K/uL RBC (4.30-5.90) m/uL Hgb (13.5-17.5) gm/dL Hct (37.0-53.0) % MCV (80-100) fL MCH (26-34) pg MCHC (32-36) gm/dL RDW Coeff of Yamil (11.5-15.5) % Plt Count (140-440) K/uL Neut % (Auto) (42.0-72.0) % Lymph % (Auto) (20-44) % Amelia % (Auto) (0.0-11.0) % Eos % (Auto) (0.0-7.0) % Baso % (Auto) (0.0-3.0) % Neut # (Auto) (1.7-7.0) K/uL Lymph # (Auto) (0.90-2.90) K/uL Amelia # (Auto) (0.00-0.90) K/UL Eos # (Auto) (0.00-0.50) K/uL Baso # (Auto) (0.00-0.30) K/uL Abs Immat Gran (auto) (0.00-0.30) K/uL Imm/Tot Granulo (auto) % D-Dimer Quant (PE/DVT) (0.00-0.50) ug/ml VBG pH (7.32-7.43) VBG pCO2 (40-50) mmHG VBG pO2 (25-47) mmHG VBG HCO3 (21-28) mmol/L Sodium (135-149) mmol/L Potassium (3.6-5.1) mmol/L Chloride (96-114) mmol/L Carbon Dioxide (20-32) mmol/L Anion Gap (7-15) mEq/L BUN (7-30) mg/dL Creatinine (0.5-1.5) mg/dL Estimated Creat Clear Estimated GFR ml/min Glucose (60-115) mg/dL Lactate 1.9 (0.5-1.9) mmol/L Calcium (8.4-10.6) mg/dL Magnesium (1.5-2.6) mg/dL Total Bilirubin (0.1-1.5) mg/dL AST (12-35) U/L ALT (4-50) U/L Alkaline Phosphatase (40-150) U/L C-Reactive Protein (0.5-1.0) mg/dL Total Protein (6.0-8.3) g/dL Albumin (3.3-5.0) g/dL Lipase (23-300) U/L Procalcitonin (<0.50) ng/mL Urine Color (Yellow) Urine Appearance (Clear) Urine pH (5.0-8.5) Ur Specific Otto (1.000-1.030) Urine Protein (Negative) Urine Glucose (UA) (Negative) Urine Ketones (Negative) Urine Blood (Negative) Urine Nitrite (Negative) Urine Bilirubin (Negative) Urine Urobilinogen (0.2-1.0) Ur Leukocyte Esterase (Negative) Urine RBC (0-2) Urine WBC (0-5) Ur Squamous Epith Cells (None-Few) Amorphous Sediment (None) Urine Bacteria (None) Urine L. pneumophilia Ag (Negative) Urine Strep pneumoniae Ag (Negative) SARS-CoV-2 (PCR) (Negative) Influenza Type A (PCR) (Negative) Influenza Type B (PCR) (Negative) RSV (PCR) (Negative) POC Creatinine (0.6-1.3) mg/dl POC Troponin I (0.01-0.04) ng/ml Imaging Data CT scan - head: Attestation: I have reviewed the pertinent imaging results. My impression: Calcifications in midbrain area, uncertain etiology. Have clarified with the radiology report that these seem to be chronic calcifications. The remainder of the brain does not show any asymmetry, obvious mass or hemorrhage. Radiologist's impression: IMPRESSION: 1. Hyperdensity within bilateral basal ganglia and dentate nuclei, likely calcification. 2. No acute intracranial abnormality within the limit of examination. Please note that all CT scans at this facility use dose modulation, iterative reconstruction, and/or weight-based dosing when appropriate to reduce radiation dose to as low as reasonably achievable. Dictated by Effie Gabriel MD @ 12/17/2024 7:43:[address] Chest/Ab/Pelvis: Attestation: I have reviewed the pertinent imaging results. My impression: Left-sided pneumonia but also some fluid throughout the bottles concerning for colitis. There is also some hydronephrosis and stranding along the left kidney with a large kidney stone. Uncertain if this is potentially infected as well. No obvious other mass. No obvious bowel obstruction. Radiologist's impression: IMPRESSION: 1. Bilateral peribronchovascular nodularity with more dense consolidation within the lingula and left lower lobe consistent with an infectious bronchiolitis/bronchopneumonia. 2. Fluid noted throughout the colon which can be seen in enteritis/diarrheal illness. 3. Nonobstructing nephrolithiasis. Please note that all CT scans at this facility use dose modulation, iterative reconstruction, and/or weight-based dosing when appropriate to reduce radiation dose to as low as reasonably achievable. Dictated by Ciro Banks MD @ 12/17/2024 8:19:17 AM (Electronic Signature) ECG Data Attestation: I personally reviewed and interpreted this ECG as follows: Prior ECG tracings: not available for review Interpretation: Sinus rhythm with a rate of 82. No significant ST or T-wave abnormalities. Normal intervals and axis. Normal EKG. Discharge Plan Discharge Condition: Improved Activity Level: Activity as Tolerated Discharge Diet: Regular
[2024-12-17] MEDS: 0.9 % SODIUM CHLORIDE 1000 ml 1,000 ML IV (07:03)
[2024-12-17 07:10] LABS: HCO3 VBG 25 mmol/L (21-28); Lactate Sepsis w/Reflex* 2.4 mmol/L (0.5-1.9); PCO2 VBG 36 mmHG (40-50); PO2 VBG 57.6 mmHG (25-47); pH VBG 7.447 (7.32-7.43)
[2024-12-17 07:13] LABS: Basophils Percent Auto 0.4 % (0.0-3.0); Eosinophils Percent Auto 7.1 % (0.0-7.0); Hematocrit 32.6 % (37.0-53.0); Hemoglobin* 11.3 gm/dL (13.5-17.5); Immature Granulocytes Pct Auto 0.8 %; Lymphocytes Percent Auto 6.3 % (20-44); Mean Corpuscular HGB Conc 35 gm/dL (32-36); Mean Corpuscular Hemoglobin 33 pg (26-34); Mean Corpuscular Volume 94 fL (80-100); Monocytes Percent Auto 10.9 % (0.0-11.0); Neutrophils Percent Auto 74.5 % (42.0-72.0); Platelet Count* 110 K/uL (140-440); RDW Coefficient of Variation % 15.3 % (11.5-15.5); Red Blood Count 3.47 m/uL (4.30-5.90); White Blood Count* 2.39 K/uL (4.50-11.00)
[2024-12-17 07:17] LABS: Creatinine, Point-of-Care* 1.2 mg/dl (0.6-1.3); Troponin, Point-of-Care* 0.01 ng/ml (0.01-0.04)
[2024-12-17 07:20] LABS: Slide Review Reflex No
[2024-12-17 07:28] LABS: Albumin* 3.6 g/dL (3.3-5.0); Chloride* 99 mmol/L (96-114)
[2024-12-17 07:29] LABS: Potassium* 4.2 mmol/L (3.6-5.1); Sodium* 130 mmol/L (135-149)
[2024-12-17 07:31] LABS: Alanine Aminotransferase* 28 U/L (4-50); Aspartate Amino Transferase* 44 U/L (12-35); Blood Urea Nitrogen* 14 mg/dL (7-30); D Dimer Quantitative* 1.74 ug/ml (0.00-0.50); Estimated Glomerular Filt Rate 80 ml/min
[2024-12-17 07:32] LABS: Alkaline Phosphatase* 173 U/L (40-150); Anion Gap 9 mEq/L (7-15); Bilirubin Total* 1.5 mg/dL (0.1-1.5); Calcium* 8.1 mg/dL (8.4-10.6); Carbon Dioxide* 22 mmol/L (20-32); Glucose* 193 mg/dL (60-115); Lipase* 466 U/L (23-300); Total Protein* 5.9 g/dL (6.0-8.3)
[2024-12-17 07:47] LABS: C Reactive Protein* 14.8 mg/dL (0.5-1.0)
[2024-12-17 07:48] LABS: Procalcitonin* 0.31 ng/mL (<0.50)
[2024-12-17 07:54] LABS: PCR FLU A Negative PCR FLU A (Negative); PCR FLU B Negative PCR FLU B (Negative); PCR RSV Negative PCR RSV (Negative); SARS PCR* Negative SARS-CoV-2 (Negative)
[2024-12-17] MEDS: IPRAT-ALBUT 0.5-2.5 MG/3 ML NEB 1 NEB IH (08:10)
[2024-12-17] MEDS: PIPERACILLIN/TAZOBACTAM 3.375 GM in 0.9 % SODIUM CHLORIDE Mini-bag 100 ML IVPB ×3 (08:26→21:00)
[2024-12-17] MEDS: METHYLPREDNISOLONE SOD SUCC 40 MG/ML 60 MG IVP (08:27)
[2024-12-17 09:06] LABS: Appearance Urine Clear (Clear); Bilirubin Urine Negative (Negative); Blood Urine 2+ (Negative); Color Urine Yellow (Yellow); Glucose Urine 1+ (Negative); Ketones Urine Trace (Negative); Leukocyte Esterase Urine Negative (Negative); Nitrite Urine Negative (Negative); Protein Urine 2+ (Negative); Urobilinogen Urine 0.2 (0.2-1.0)
[2024-12-17 09:13] LABS: Lactate Sepsis 2 Hour 1.9 mmol/L (0.5-1.9)
[2024-12-17 09:13] LABS: Amorphous Sediment Urine Few; Bacteria Urine Few; Squamous Epithelial Cell Urine Few (None-Few); WBC Urine 0-2 (0-5)
--- NOTE | 2024-12-17 09:51 | RESP.RT ---
Patient initially was on 15L oxymask SATing 92%. Patient was very congested with audible wheezing. Neb given and .95HFNC@ 35Lpm initiated. Chest x-ray shows a left sided pneumonia. HFNC will be recommended treatment for mucus clearance and hypoxia. We will try to keep head of bed up at least 30 degrees.
[2024-12-17 12:47] LABS: Legionella pneumo Ag Urine L. pneumo Negative (Negative); S pneumo Ag Urine S. pneumo Negative (Negative)
[2024-12-17] MEDS: AZITHROMYCIN 250 MG TABLET 500 MG PO (12:51)
--- NOTE | 2024-12-17 15:34 | PM.IMHP1 ---
Assessment and Plan Assessment and plan (1) Deep venous thrombosis: Status: Inactive (2) Acute hypoxic respiratory failure: Status: Acute (3) Pneumonia: Status: Acute (4) Immunocompromised: Problem comment: Due to multiple myeloma and therapy for it. Status: Acute (5) Diabetes mellitus: Problem comment: Historically fairly well controlled Status: Acute (6) Multiple myeloma: Problem comment: Ongoing treatment. Mild chronic pancytopenia. Oncologist is Dr. Valerio [phone]. Oncologist recommends holding Revlimid until outpatient oncology follow-up in 12 days Status: Acute (7) Chronic anticoagulation: Status: Acute (8) Peripheral neuropathy: Problem comment: Due to myeloma treatment and also possibly diabetes mellitus. Status: Acute Plan Patient is admitted to the CCU for management of hypoxic respiratory failure due to pneumonia with high-flow oxygen, broad-spectrum antibiotics to address pneumonia in an immunocompromised patient. Will hold off on steroid therapy for now but consider steroid therapy if signs of septic shock or worsening pulmonary failure. Patient does want intubation if necessary to reverse a treatable cause of respiratory failure. Hold Revlimid pending outpatient followup. Manage diabetes. Total Time Spent Total Time Spent: Total time spent today is 85 minutes in critical care evaluation and management Hospitalist- H&P: HPI History of Present Illness Time Seen by Provider: 10:50 Date Seen: 12/17/24 Chief complaint: been feeling sick, oxygen Narrative: Lui Peñaloza is a 74 year old male with history of DVT on Eliquis, multiple myeloma on Revlimid and daratumumab and diabetes on insulin admitted to the hospital with profound weakness fever sore throat and cough. Patient 1st started having symptoms of illness 4 days ago. At that time he had some sore throat and a little bit of cough and congestion. he was seen in clinic where he had a negative strep test. He reportedly felt tired. He normally walks 1.5 hours per day but has not walked in the last 4 days because of his fatigue. Last night when he went to bed his noted that he seemed diaphoretic and she checked and he had a fever. This morning when he woke up he tried to get out of bed to go to the bathroom but he was too weak to stand up. Because this he came to the emergency department. He traveled to [facility] twice in the last week and a half to see his grandchildren graduate from kindergarten and participate in [place] shooting contest. At least a couple of his grandkids had strep throat while he was there. He has no history of chronic lung disease. He is not a smoker. He has multiple myeloma and is treated with Revlimid 10 mg daily for 21 days out of 28 days and daratumumab every 28 days. He is due for his next treatment at the oncology clinic in 12 days, December 29. His oncologist is recommending stopping Revlimid until he follows up in clinic in 12 days. Due to his immunosuppression from multiple myeloma and treatment he is also taking acyclovir and single strength Bactrim. He is on Eliquis because of a DVT that occurred about 2 years ago after his stem cell transplant [place] In the emergency department he was found to be in respiratory failure requiring high-flow oxygen to maintain his O2 sats above 90%. He had altered mental status but with resuscitation did clinically improve. Review of Systems Narrative: Patient reports feeling well prior to the last 5 days. He has been tolerating his myeloma therapy fairly well. Had no other significant symptoms of illness. Medical Decision Making Medical Decision Making Has patient completed a Health Care Directive: No 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 (ICD-10) Diabetes mellitus ?E11.9 - Type 2 diabetes mellitus without complications (ICD-10) Multiple myeloma ?C90.00 - Multiple myeloma not having achieved remission (ICD-10) Surgical History (Updated 12/17/24 @ 15:44 by Joseph Oglesby MD) History of colonoscopy ?Z98.890 - Other specified postprocedural states (ICD-10) History of tonsillectomy ?Z90.89 - Acquired absence of other organs (ICD-10) History of stem cell transplant ?Z94.84 - Stem cells transplant status (ICD-10) History of umbilical hernia repair ?Z98.890 - Other specified postprocedural states (ICD-10) ?Z87.19 - Personal history of other diseases of the digestive system (ICD-10) Family History (Updated 12/17/24 @ 15:44 by Joseph Oglesby MD) Father Colon cancer Brother Diabetes Social History (Updated 12/17/24 @ 15:46 by Joseph Oglesby MD) Narrative: He lives in [place] with his and daughter. 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 His code status is full. 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 He does not smoke. He alcohol rarely drinks What is your current living situation?: I presently have a place to live Problems where you live: no known problems Problems where you live details: none In the past 12 months, utilities in danger of being shut off: no In past 12 months, lack of transportation kept you from medical appts, meetings, work, or getting things needed for daily living: no In the past 12 mos, have been you worried that your food would run out before you had money to buy more?: never true In the past 12 mos, the food you bought just didn't last and you didn't have money to buy more?: never true Smoking Status: Never smoker Do you use any of these nicotine containing products: None Second hand tobacco smoke exposure: Yes How often do you have a drink containing alcohol: monthly or less How many standard drinks containing alcohol do you have on a typical day: 1 or 2 How often do you have six or more drinks on one occasion: Never AUDIT-C Alcohol total score: 1 Non-prescribed substance use: denies use How often does anyone, including family, friends and others, physically hurt you: never How often does anyone, including family, friends and others, insult or talk down to you: never How often does anyone, including family, friends and others, threaten you with harm: never How often does anyone, including family, friends and others, scream or curse at you: never service: No Meds Home Medications and Allergies Home Medications ?Medication ?Instructions ?Recorded ?Confirmed ?Type acyclovir 400 mg tablet 400 mg PO BID 12/13/24 12/17/24 History insulin degludec 100 unit/mL (3 11 unit subcut Q24H 12/13/24 12/17/24 History mL) subcutaneous pen metformin 500 mg tablet,extended 1,000 mg PO BID 12/13/24 12/17/24 History release 24 hr potassium chloride 20 mEq oral 20 meq PO BID 12/13/24 12/17/24 History packet pregabalin 75 mg capsule 75 mg PO BID 12/13/24 12/17/24 History apixaban 5 mg tablet (Eliquis) 5 mg PO BID 12/17/24 12/17/24 History lenalidomide 10 mg capsule 10 mg PO DAILY 12/17/24 12/17/24 History (Revlimid) sulfamethoxazole 400 1 tab PO DAILY 12/17/24 12/17/24 History mg-trimethoprim 80 mg tablet Allergies Allergy/AdvReac Type Severity Reaction Status Date / Time No Known Drug Allergies Allergy Verified 12/17/24 08:03 Exam Narrative: Exam Narrative: He is alert on high-flow nasal cannula breathing relatively comfortably, mildly tachypneic. He is oriented to his circumstances and able to give his own history corroborated by his and the medical record. Head is normal. Eyes no. Abdomen is soft without tenderness or mass rmal. Oropharynx with small airway. Neck is supple without mass or adenopathy or jugular venous distension. Respirations are clear to auscultation except for the left base where he has an area of prominent crackles and decreased breath sounds. No wheezing. Fairly good air exchange all lung dow except the left base. Cardiovascular: S1, S2, regular rate and rhythm. 1/6 systolic murmur. Abdomen: Bowel sounds active. Abdomen is nontender. No mass. Extremities with no significant edema. Intact peripheral pulses. Good capillary refill. intact sensation to soft touch in all 4 extremities though subjectively decreased sensation by patient report Const: Vital Signs, click to edit/add: Vital Signs - 24 hr 12/17/24 06:55 12/17/24 06:57 12/17/24 06:59 Temperature 99.0 F Pulse Rate Pulse Rate [Pulse Oximeter] Pulse Rate [Right Pulse Oximeter] 82 Respiratory Rate 36 H Blood Pressure Blood Pressure [Le ft Arm] Blood Pressure [Le ft Upper Arm] 159/78 H Pulse Oximetry 96 98 96 Oxygen Delivery Me thod High Flow Nasal Ca nnula Non Rebreath er Mask Non Rebreather Mas k Oxygen Flow Rate 10 10 Fraction of Inspir ed Oxygen 12/17/24 07:15 12/17/24 07:15 12/17/24 07:30 Temperature Pulse Rate Pulse Rate [Pulse Oximeter] Pulse Rate [Right Pulse Oximeter] 83 85 86 Respiratory Rate 32 H 32 H 34 H Blood Pressure Blood Pressure [Le ft Arm] Blood Pressure [Le ft Upper Arm] 163/76 H 156/76 H Pulse Oximetry 92 93 92 Oxygen Delivery Me thod Non Rebreather Mas k Non Rebreather Mas k Non Rebreather Mas k Oxygen Flow Rate 10 10 Fraction of Inspir ed Oxygen 12/17/24 08:00 12/17/24 08:15 12/17/24 08:30 Temperature Pulse Rate Pulse Rate [Pulse Oximeter] Pulse Rate [Right Pulse Oximeter] 85 82 82 Respiratory Rate 32 H 32 H 32 H Blood Pressure Blood Pressure [Le ft Arm] Blood Pressure [Le ft Upper Arm] 175/77 H 165/75 H Pulse Oximetry 93 92 93 Oxygen Delivery Me thod Non Rebreather Mas k Non Rebreather Mas k Non Rebreather Mas k Oxygen Flow Rate 10 10 Fraction of Inspir ed Oxygen 12/17/24 08:43 12/17/24 08:45 12/17/24 08:47 Temperature Pulse Rate 78 79 81 Pulse Rate [Pulse Oximeter] Pulse Rate [Right Pulse Oximeter] Respiratory Rate 35 H 32 H 30 H Blood Pressure 161/72 H Blood Pressure [Le ft Arm] Blood Pressure [Le ft Upper Arm] Pulse Oximetry 93 93 94 Oxygen Delivery Me thod High Flow Nasal Ca nnula Oxygen Flow Rate Fraction of Inspir ed Oxygen 95 12/17/24 09:00 12/17/24 09:00 12/17/24 09:02 Temperature Pulse Rate 79 78 Pulse Rate [Pulse Oximeter] Pulse Rate [Right Pulse Oximeter] Respiratory Rate 30 H 29 H Blood Pressure 142/68 H Blood Pressure [Le ft Arm] Blood Pressure [Le ft Upper Arm] Pulse Oximetry 93 91 Oxygen Delivery Me thod Oxygen Flow Rate Fraction of Inspir ed Oxygen 95 12/17/24 09:03 12/17/24 09:15 12/17/24 09:17 Temperature Pulse Rate 79 75 74 Pulse Rate [Pulse Oximeter] Pulse Rate [Right Pulse Oximeter] Respiratory Rate 30 H 32 H 39 H Blood Pressure 139/61 Blood Pressure [Le ft Arm] Blood Pressure [Le ft Upper Arm] Pulse Oximetry 90 93 94 Oxygen Delivery Me thod High Flow Nasal Ca nnula Oxygen Flow Rate 35 Fraction of Inspir ed Oxygen 95 12/17/24 09:30 12/17/24 09:33 12/17/24 09:34 Temperature Pulse Rate 76 77 Pulse Rate [Pulse Oximeter] Pulse Rate [Right Pulse Oximeter] Respiratory Rate 33 H 32 H Blood Pressure 130/64 Blood Pressure [Le ft Arm] Blood Pressure [Le ft Upper Arm] Pulse Oximetry 95 96 96 Oxygen Delivery Me thod High Flow Nasal Ca nnula Oxygen Flow Rate 35 Fraction of Inspir ed Oxygen 95 12/17/24 09:35 12/17/24 09:35 12/17/24 09:44 Temperature Pulse Rate Pulse Rate [Pulse Oximeter] Pulse Rate [Right Pulse Oximeter] Respiratory Rate 32 H Blood Pressure Blood Pressure [Le ft Arm] Blood Pressure [Le ft Upper Arm] Pulse Oximetry 96 Oxygen Delivery Me thod Oxygen Flow Rate 35 Fraction of Inspir ed Oxygen 90 90 85 12/17/24 09:45 12/17/24 09:47 12/17/24 09:49 Temperature Pulse Rate 71 74 Pulse Rate [Pulse Oximeter] Pulse Rate [Right Pulse Oximeter] Respiratory Rate 28 H 28 H Blood Pressure 121/79 Blood Pressure [Le ft Arm] Blood Pressure [Le ft Upper Arm] Pulse Oximetry 96 98 Oxygen Delivery Me thod Oxygen Flow Rate 35 Fraction of Inspir ed Oxygen 95 12/17/24 10:00 12/17/24 10:02 12/17/24 10:20 Temperature 98.8 F Pulse Rate 74 75 Pulse Rate [Pulse Oximeter] 77 Pulse Rate [Right Pulse Oximeter] Respiratory Rate 33 H 32 H 36 H Blood Pressure 130/63 Blood Pressure [Le ft Arm] 128/85 Blood Pressure [Le ft Upper Arm] Pulse Oximetry 96 97 94 Oxygen Delivery Me thod High Flow Nasal Ca nnula High Flow Nasal Ca nnula Oxygen Flow Rate 35 35 Fraction of Inspir ed Oxygen 85 75 12/17/24 10:40 12/17/24 10:51 12/17/24 11:13 Temperature Pulse Rate Pulse Rate [Pulse Oximeter] Pulse Rate [Right Pulse Oximeter] Respiratory Rate 36 H Blood Pressure Blood Pressure [Le ft Arm] Blood Pressure [Le ft Upper Arm] Pulse Oximetry 93 Oxygen Delivery Me thod High Flow Nasal Ca nnula Oxygen Flow Rate 35 Fraction of Inspir ed Oxygen 75 75 75 12/17/24 11:15 06/12/25 12:29 12/17/24 12:29 Temperature 96.7 F L Pulse Rate 77 Pulse Rate [Pulse Oximeter] 79 Pulse Rate [Right Pulse Oximeter] Respiratory Rate 34 H Blood Pressure Blood Pressure [Le ft Arm] 144/87 H Blood Pressure [Le ft Upper Arm] Pulse Oximetry 93 Oxygen Delivery Me thod High Flow Nasal Ca nnula Oxygen Flow Rate 35 Fraction of Inspir ed Oxygen 75 75 12/17/24 13:14 12/17/24 14:21 12/17/24 14:22 Temperature 98.1 F Pulse Rate Pulse Rate [Pulse Oximeter] 74 Pulse Rate [Right Pulse Oximeter] Respiratory Rate 40 H Blood Pressure Blood Pressure [Le ft Arm] 144/72 H Blood Pressure [Le ft Upper Arm] Pulse Oximetry 92 Oxygen Delivery Me thod High Flow Nasal Ca nnula Oxygen Flow Rate Fraction of Inspir ed Oxygen 65 65 12/17/24 15:00 12/17/24 15:00 Temperature Pulse Rate 71 Pulse Rate [Pulse Oximeter] Pulse Rate [Right Pulse Oximeter] Respiratory Rate Blood Pressure Blood Pressure [Le ft Arm] Blood Pressure [Le ft Upper Arm] Pulse Oximetry 93 Oxygen Delivery Me thod Oxygen Flow Rate Fraction of Inspir ed Oxygen Documenting provider has reviewed patient's vital signs: yes Hospitalist - H&P: Result Labs Labs: Short CBC 12/17/24 Range/Units 06:55 WBC 2.39 L (4.50-11.00) K/uL Hgb 11.3 L (13.5-17.5) gm/dL Hct 32.6 L (37.0-53.0) % Plt Count 110 L (140-440) K/uL BMP 12/17/24 06:55 Sodium 130 L Potassium 4.2 Chloride 99 Carbon Dioxide 22 BUN 14 Creatinine 1.0 Glucose 193 H Calcium 8.1 L Liver Function 12/17/24 Range/Units 06:55 Total Bilirubin 1.5 (0.1-1.5) mg/dL AST 44 H (12-35) U/L ALT 28 (4-50) U/L Alkaline Phosphatase 173 H (40-150) U/L Albumin 3.6 (3.3-5.0) g/dL Urine 12/17/24 Range/Units 09:03 Urine Color Yellow (Yellow) Urine Appearance Clear (Clear) Urine pH 6.0 (5.0-8.5) Ur Specific [place] 1.010 (1.000-1.030) Urine Protein 2+ A (Negative) Urine Glucose (UA) 1+ A (Negative) ECG Attestation: I personally reviewed and interpreted this ECG as follows: (Normal EKG) ECG interpretation date: 12/17/[address] Chest/Ab/Pelvis: Radiologist's impression: TECHNIQUE: CT chest, abdomen and pelvis acquired with 95 cc Isovue 370 intravenous contrast. COMPARISON: None. FINDINGS: CHEST: Cardiovascular structures: Thoracic aorta is normal in caliber. Severe coronary atherosclerosis. No pericardial effusion. Limited evaluation of the pulmonary arteries secondary to respiratory motion although grossly unremarkable. Mediastinum and carol: Subcentimeter mediastinal lymph nodes with calcified right hilar lymph nodes. Lungs and pleura: Peribronchovascular nodularity bilaterally, far greater on the left with more dense consolidation within the lingula and left lower lobe. Chest wall and axilla: No mass or adenopathy. Bones: No suspicious bone lesions. Unremarkable for age. ABDOMEN AND PELVIS: Liver: Unremarkable. Gallbladder and bile ducts: Unremarkable. Pancreas: Unremarkable. Spleen: Unremarkable. Adrenal glands: Unremarkable. Kidneys: Symmetric renal enhancement with nonobstructing nephrolithiasis in the left kidney with a notable 19 x 13 millimeter stone within a lower pole calyx. Subcentimeter hypodense lesion left kidney, too small for characterization. GI tract: Stomach is unremarkable. No dilated loops of large or small intestine. Fluid noted within the colon. Vascular structures: Atherosclerosis without abdominal aortic aneurysm. Lymph nodes: Unremarkable. Miscellaneous: Lipoma anterior right thigh measuring 2.5 centimeters. Pelvic Organs: Unremarkable. Bones: No suspicious bone lesions. Unremarkable for age. IMPRESSION: 1. Bilateral peribronchovascular nodularity with more dense consolidation within the lingula and left lower lobe consistent with an infectious bronchiolitis/bronchopneumonia. 2. Fluid noted throughout the colon which can be seen in enteritis/diarrheal illness. 3. Nonobstructing nephrolithiasis.
[2024-12-17] MEDS: INSULIN ASPART 100 UNIT/ML SUBCUT ×2 (17:14→21:02)
--- NOTE | 2024-12-17 17:19 | PC.NURSE ---
PATIENT ALERT AND ORIENTED, UP SBA TO BSC/CHAIR TOLERATING FAIRLY PATIENT GETS SOB WITH ANY ACTIVITY, DECLINING PAIN, HFNC PATENT AND PATIENT TOLERATING WELL, HAS BEEN ABLE TO EAT WITHOUT SIGNS OF ASPIRATION WITH HFNC ON, BM TODAY LOOSE, USING URINAL AT BESIDE, USING AREOBKA INDEPENDENTLY, PRESENT OFF AND ON THROUGHOUT SHIFT AND IS SUPPROTIVE.
--- NOTE | 2024-12-17 17:57 | PC.NURSE ---
1700 BLOOD SUGAR 403 MD UPDATED NO CHANGES NOTED.
[2024-12-17] MEDS: SODIUM CHLORIDE 0.9 % (FLUSH) 10 ML SYRINGE 5 ML IVF (21:01)
[2024-12-17] MEDS: APIXABAN 5 MG TABLET PO (21:01)
[2024-12-17] MEDS: POTASSIUM CHLORIDE 10 MEQ CAPSULE ER 20 MEQ PO (21:01)
[2024-12-17] MEDS: ACYCLOVIR 200 MG CAPSULE 400 MG PO (21:01)
[2024-12-17] MEDS: PREGABALIN 75 MG CAPSULE PO (21:01)
[2024-12-17] MEDS: METFORMIN ER 500 MG 1000 MG PO (21:01)
[2024-12-18] VITALS (29 sets, daily range): BP systolic 114–160; BP diastolic 64–80; PULSE 61–95; RESP 20–38; TEMP 36.7–37.7; O2SAT 90–94; BMI 30.1
[2024-12-18] MEDS: PIPERACILLIN/TAZOBACTAM 3.375 GM in 0.9 % SODIUM CHLORIDE Mini-bag 100 ML IVPB ×4 (01:48→19:34)
[2024-12-18 07:14] LABS: Eosinophils Percent Auto 7.1 % (0.0-7.0); Hematocrit 31.1 % (37.0-53.0); Hemoglobin* 10.5 gm/dL (13.5-17.5); Immature Granulocytes Pct Auto 0.5 %; Lymphocytes Percent Auto 5.5 % (20-44); Mean Corpuscular HGB Conc 34 gm/dL (32-36); Mean Corpuscular Hemoglobin 32 pg (26-34); Mean Corpuscular Volume 96 fL (80-100); Monocytes Percent Auto 11.5 % (0.0-11.0); Neutrophils Percent Auto 75.4 % (42.0-72.0); Platelet Count* 86 K/uL (140-440); RDW Coefficient of Variation % 15.4 % (11.5-15.5); Red Blood Count 3.25 m/uL (4.30-5.90)
[2024-12-18 07:23] LABS: Slide Review Reflex No; White Blood Count* 1.82 K/uL (4.50-11.00)
[2024-12-18 07:41] LABS: Albumin* 3.7 g/dL (3.3-5.0); Chloride* 100 mmol/L (96-114); Sodium* 135 mmol/L (135-149)
[2024-12-18 07:42] LABS: Potassium* 3.8 mmol/L (3.6-5.1)
[2024-12-18 07:44] LABS: Anion Gap 8 mEq/L (7-15); Blood Urea Nitrogen* 19 mg/dL (7-30); Carbon Dioxide* 27 mmol/L (20-32); Creatinine* 1.3 mg/dL (0.5-1.5); Est. Creatinine Clearance* 51.36; Estimated Glomerular Filt Rate 58 ml/min
[2024-12-18 07:45] LABS: Alanine Aminotransferase* 31 U/L (4-50); Alkaline Phosphatase* 179 U/L (40-150); Aspartate Amino Transferase* 37 U/L (12-35); Bilirubin Direct* 0.3 mg/dL (0.0-0.5); Bilirubin Total* 0.8 mg/dL (0.1-1.5); Calcium* 8.6 mg/dL (8.4-10.6); Glucose* 167 mg/dL (60-115); Lipase* 56 U/L (23-300); Total Protein* 6.4 g/dL (6.0-8.3)
[2024-12-18 08:05] LABS: C Reactive Protein* 20.3 mg/dL (0.5-1.0)
--- NOTE | 2024-12-18 08:07 | PC.NURSE ---
Pt alert and oriented. Pt on high larry Pt tolerated well and maintained saturations 89-93% throughout the shift; RR 30-40's. Pt?s other VSS. Pt had no complaints of pain. Pt had a low grade temperature of 100.0 around 2200 that resolved with out intervention. Pt slept well most of the night. Pt up with a SBA.?
--- NOTE | 2024-12-18 09:01 | CRLHL7_ITS ---
For Patients: As a result of the Century Cures Act, medical imaging exams and procedure reports are released immediately into your electronic medical record. You may view this report before your referring provider. If you have questions, please contact your health care provider. Indication: Respiratory failure Technique: Chest 1 view Comparison: None Findings/Impression: Cardiovascular and mediastinum: Heart size and vasculature are normal in caliber and appearance. Lungs and pleural space: No pleural effusion or pneumothorax with bronchial wall thickening, reticular nodular interstitial prominence and some consolidation at the left lung base consistent with pneumonia. Bones and soft tissues: No acute findings. Dictated by Ciro Banks MD @ 12/18/2024 9:41:38 AM (Electronically Signed)
[2024-12-18] MEDS: POTASSIUM CHLORIDE 10 MEQ CAPSULE ER 20 MEQ PO ×2 (09:02→20:54)
[2024-12-18] MEDS: ACYCLOVIR 200 MG CAPSULE 400 MG PO ×2 (09:02→20:54)
[2024-12-18] MEDS: METFORMIN ER 500 MG 1000 MG PO ×2 (09:02→20:54)
[2024-12-18] MEDS: APIXABAN 5 MG TABLET PO ×2 (09:02→20:54)
[2024-12-18] MEDS: SODIUM CHLORIDE 0.9 % (FLUSH) 10 ML SYRINGE 5 ML IVF ×2 (09:03→20:55)
[2024-12-18] MEDS: PREGABALIN 75 MG CAPSULE PO ×2 (09:06→21:00)
[2024-12-18] MEDS: IPRAT-ALBUT 0.5-2.5 MG/3 ML NEB 1 NEB IH ×4 (09:09→20:54)
[2024-12-18] MEDS: INSULIN ASPART 100 UNIT/ML SUBCUT ×4 (09:09→20:55)
[2024-12-18 09:48] LABS: NT Pro B Type NatriureticPept* 228 pg/mL (See Note); Troponin I* < 0.01 ng/mL (0.01-0.04)
[2024-12-18] MEDS: AZITHROMYCIN 250 MG TABLET 500 MG PO (12:00)
--- NOTE | 2024-12-18 12:25 | P.IMPN_ITS ---
Assessment and Plan Assessment and plan (1) Acute hypoxic respiratory failure: Problem comment: Due to atypical pneumonia. 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 On chronic Eliquis Status: Inactive (4) Immunocompromised: Problem comment: Due to multiple myeloma and therapy for it. Monitor for evidence of infectious complication, opportunistic infections Status: Acute (5) Diabetes mellitus: Problem comment: Historically fairly well controlled. Marked blood sugar elevations yesterday likely due to steroid use yesterday as well as acute illness Status: Acute (6) Multiple myeloma: Problem comment: Ongoing treatment. Mild chronic pancytopenia. Oncologist is Dr. Valerio [phone]. Oncologist recommends holding Revlimid until outpatient oncology follow-up in 12 days. Continue to monitor. Pancytopenia modestly worse on December 18 Status: Acute (7) Chronic anticoagulation: Problem comment: Eliquis Status: Acute (8) Peripheral neuropathy: Problem comment: Due to myeloma treatment and also possibly diabetes mellitus. Status: Acute Plan Continue in hospital for IV antibiotics, high-flow oxygen and monitoring of respiratory failure and myeloma. Total Time Spent Total Time Spent: Total time spent today is 60 minutes in coordination of care and discussing with patient and other providers ongoing management of respiratory failure, myeloma, diabetes Subjective Date Seen: 12/18/24 Interval history: Lui Peñaloza is a 74 year old male with history of DVT on Eliquis, multiple myeloma on Revlimid and daratumumab and diabetes on insulin admitted to the hospital with profound weakness fever sore throat and cough. Patient 1st started having symptoms of illness 4 days ago. At that time he had some sore throat and a little bit of cough and congestion. he was seen in clinic where he had a negative strep test. He reportedly felt tired. He normally walks 1.5 hours per day but has not walked in the last 4 days because of his fatigue. Last night when he went to bed his noted that he seemed diaphoretic and she checked and he had a fever. This morning when he woke up he tried to get out of bed to go to the bathroom but he was too weak to stand up. Because this he came to the emergency department. He traveled to [facility] twice in the last week and a half to see his grandchildren graduate from kindergarten and participate in [employer]. At least a couple of his grandkids had strep throat while he was there. He has no history of chronic lung disease. He is not a smoker. He has multiple myeloma and is treated with Revlimid 10 mg daily for 21 days out of 28 days and daratumumab every 28 days. He is due for his next treatment at the oncology clinic in 12 days, December 29. His oncologist is recommending stopping Revlimid until he follows up in clinic in 12 days. Due to his immunosuppression from multiple myeloma and treatment he is also taking acyclovir and single strength Bactrim. He is on Eliquis because of a DVT that occurred about 2 years ago after his stem cell transplant at [place] In the emergency department he was found to be in respiratory failure requiring high-flow oxygen to maintain his O2 sats above 90%. He had altered mental status but with resuscitation did clinically improve. 12/18/2024: Patient reports feeling about the same today. Still dyspneic. Still coughing. He is tolerating p.o. food and fluid. He remains on high-flow nasal cannula. Exam Narrative: Exam Narrative: He is alert with mild increased work of breathing on high-flow oxygen. He is oriented to his circumstances. Respirations a relatively clear to auscultation with a few crackles on the right and more prominent crackles on the left base. Appears increased from yesterday. Fair air exchange in on his left lung dow and good air exchange in the right lung dow. Cardiovascular: S1, S2, regular rate and rhythm. Abdomen is soft without tenderness or mass. Extremities without edema. Good peripheral perfusion and pulses. Const: Vital Signs, click to edit/add: Vital Signs - 24 hr 12/17/24 12:29 12/17/24 12:29 12/17/24 13:14 Temperature 96.7 F L Pulse Rate Pulse Rate [Pulse Oximeter] 79 Respiratory Rate 34 H Blood Pressure [Le ft Arm] 144/87 H Pulse Oximetry 93 Oxygen Delivery Me thod High Flow Nasal Ca nnula Oxygen Flow Rate 35 Fraction of Inspir ed Oxygen 75 75 65 12/17/24 14:21 12/17/24 14:22 12/17/24 15:00 Temperature 98.1 F Pulse Rate 71 Pulse Rate [Pulse Oximeter] 74 Respiratory Rate 40 H Blood Pressure [Le ft Arm] 144/72 H Pulse Oximetry 92 Oxygen Delivery Me thod High Flow Nasal Ca nnula Oxygen Flow Rate Fraction of Inspir ed Oxygen 65 12/17/24 15:00 12/17/24 16:00 12/17/24 16:00 Temperature 97.9 F Pulse Rate Pulse Rate [Pulse Oximeter] 69 Respiratory Rate 34 H Blood Pressure [Le ft Arm] 137/65 Pulse Oximetry 93 93 Oxygen Delivery Me thod High Flow Nasal Ca nnula Oxygen Flow Rate 35 Fraction of Inspir ed Oxygen 65 65 12/17/24 17:55 12/17/24 17:55 12/17/24 19:00 Temperature 98.3 F Pulse Rate 71 Pulse Rate [Pulse Oximeter] 72 Respiratory Rate 32 H Blood Pressure [Le ft Arm] 150/70 H Pulse Oximetry 93 Oxygen Delivery Me thod High Flow Nasal Ca nnula Oxygen Flow Rate 35 Fraction of Inspir ed Oxygen 65 65 12/17/24 20:58 12/17/24 20:59 12/17/24 21:10 Temperature 98.4 F Pulse Rate Pulse Rate [Pulse Oximeter] 71 Respiratory Rate 38 H 38 H Blood Pressure [Le ft Arm] 129/72 Pulse Oximetry 94 Oxygen Delivery Me thod High Flow Nasal Ca nnula Oxygen Flow Rate Fraction of Inspir ed Oxygen 65 12/17/24 22:41 12/17/24 22:41 12/17/24 23:14 Temperature 100.0 F H Pulse Rate 67 Pulse Rate [Pulse Oximeter] 70 Respiratory Rate 44 H Blood Pressure [Le ft Arm] 120/65 Pulse Oximetry 91 Oxygen Delivery Me thod High Flow Nasal Ca nnula Oxygen Flow Rate 35 Fraction of Inspir ed Oxygen 65 65 12/18/24 00:55 12/18/24 00:55 12/18/24 01:17 Temperature 98.8 F Pulse Rate Pulse Rate [Pulse Oximeter] 67 Respiratory Rate 34 H Blood Pressure [Le ft Arm] 122/69 Pulse Oximetry 91 92 Oxygen Delivery Me thod High Flow Nasal Ca nnula Oxygen Flow Rate 35 Fraction of Inspir ed Oxygen 65 65 12/18/24 02:50 12/18/24 02:50 12/18/24 03:11 Temperature 98.8 F Pulse Rate 61 Pulse Rate [Pulse Oximeter] 62 Respiratory Rate 32 H Blood Pressure [Le ft Arm] 131/77 Pulse Oximetry 94 Oxygen Delivery Me thod High Flow Nasal Ca nnula Oxygen Flow Rate 35 Fraction of Inspir ed Oxygen 65 65 12/18/24 04:43 12/18/24 04:44 12/18/24 06:20 Temperature 98.1 F 98.6 F Pulse Rate Pulse Rate [Pulse Oximeter] 64 65 Respiratory Rate 36 H 38 H Blood Pressure [Le ft Arm] 134/74 138/77 Pulse Oximetry 92 91 Oxygen Delivery Me thod High Flow Nasal Ca nnula High Flow Nasal Ca nnula Oxygen Flow Rate Fraction of Inspir ed Oxygen 65 65 12/18/24 06:21 12/18/24 07:00 12/18/24 07:00 Temperature Pulse Rate 61 Pulse Rate [Pulse Oximeter] Respiratory Rate Blood Pressure [Le ft Arm] Pulse Oximetry 93 Oxygen Delivery Me thod Oxygen Flow Rate Fraction of Inspir ed Oxygen 65 12/18/24 07:00 12/18/24 08:00 12/18/24 08:00 Temperature 99.0 F Pulse Rate Pulse Rate [Pulse Oximeter] 64 64 Respiratory Rate 38 H 38 H Blood Pressure [Le ft Arm] 114/64 Pulse Oximetry 93 Oxygen Delivery Me thod High Flow Nasal Ca nnula Oxygen Flow Rate 35 Fraction of Inspir ed Oxygen 65 65 12/18/24 10:00 12/18/24 11:00 Temperature 99.6 F Pulse Rate Pulse Rate [Pulse Oximeter] 79 Respiratory Rate 20 Blood Pressure [Le ft Arm] 120/77 Pulse Oximetry 91 Oxygen Delivery Me thod Room Air Oxygen Flow Rate Fraction of Inspir ed Oxygen 55 Documenting provider has reviewed patient's vital signs: yes Labs Labs: Laboratory Results - last 24 hr 12/17/24 12/17/24 12/18/24 06:55 09:03 06:17 WBC 1.82 L* RBC 3.25 L Hgb 10.5 L Hct 31.1 L MCV 96 MCH 32 MCHC 34 RDW Coeff of Yamil 15.4 Plt Count 86 L Neut % (Auto) 75.4 H Lymph % (Auto) 5.5 L Preston % (Auto) 11.5 H Eos % (Auto) 7.1 H Baso % (Auto) 0.0 Neut # (Auto) 1.40 L Lymph # (Auto) 0.10 L Preston # (Auto) 0.20 Eos # (Auto) 0.10 Baso # (Auto) 0.00 Abs Immat Gran (auto) 0.00 Imm/Tot Granulo (auto) 0.5 Sodium 135 Potassium 3.8 Chloride 100 Carbon Dioxide 27 Anion Gap 8 BUN 19 Creatinine 1.3 Estimated Creat Clear 51.36 Estimated GFR 58 Glucose 167 H Calcium 8.6 Magnesium 1.0 L Total Bilirubin 0.8 Direct Bilirubin 0.3 AST 37 H ALT 31 Alkaline Phosphatase 179 H Troponin I < 0.01 C-Reactive Protein 20.3 H NT-Pro-B Natriuret Pep 228 Total Protein 6.4 Albumin 3.7 Lipase 56 Urine L. pneumophilia Ag L. pneumo Negative Urine Strep pneumoniae Ag S. pneumo Negative Lab Acknowledgement 12/18/24 09:01 WBC RBC Hgb Hct MCV MCH MCHC RDW Coeff of Yamil Plt Count Neut % (Auto) Lymph % (Auto) Preston % (Auto) Eos % (Auto) Baso % (Auto) Neut # (Auto) Lymph # (Auto) Preston # (Auto) Eos # (Auto) Baso # (Auto) Abs Immat Gran (auto) Imm/Tot Granulo (auto) Sodium Potassium Chloride Carbon Dioxide Anion Gap BUN Creatinine Estimated Creat Clear Estimated GFR Glucose Calcium Magnesium Total Bilirubin Direct Bilirubin AST ALT Alkaline Phosphatase Troponin I C-Reactive Protein NT-Pro-B Natriuret Pep Total Protein Albumin Lipase Urine L. pneumophilia Ag Urine Strep pneumoniae Ag Lab Acknowledgement Test Added
[2024-12-18] MEDS: guaiFENesin 100 MG/ML CUP PO (17:05)
--- NOTE | 2024-12-18 18:58 | PC.NURSE ---
Nursing Care Hours: [id number] Pt this shift calm and cooperative, alert and oriented. Pain reported to abdomen, pt states from coughing. Cough syrup and neb administered. VSS while on high flow. SB assist with urinal. Oral cares completed in chair. Tele shows NSR.
[2024-12-18] MEDS: ACETAMINOPHEN 325 MG TABLET 650 MG PO (19:24)
[2024-12-19] VITALS (26 sets, daily range): BP systolic 118–148; BP diastolic 71–78; PULSE 67–74; RESP 18–28; TEMP 36.4–37; O2SAT 90–95
[2024-12-19] MEDS: PIPERACILLIN/TAZOBACTAM 3.375 GM in 0.9 % SODIUM CHLORIDE Mini-bag 100 ML IVPB ×3 (02:05→14:29)
--- NOTE | 2024-12-19 05:42 | PC.NURSE ---
Pt alert and oriented x3. Pt had temp of 100.0 and pt reports some soreness in abdomen from coughing, pain and temp managed with Tylenol. Pt is on High Flow Nasal Cannula, tolerating well. High flow settings 35L, 50 FiO2, 36F throughout night. Pt maintaining O2 stats of 90-94%. Pt had dry intermittent cough during beginning of shift 1900 then turned throughout night into moist cough with thick clear sputum. Pt is up SBA, voiding and tolerating a regular diet.
[2024-12-19 06:46] LABS: Eosinophils Percent Auto 11.4 % (0.0-7.0); Hemoglobin* 10.6 gm/dL (13.5-17.5); Immature Granulocytes Pct Auto 0.6 %; Lymphocytes Percent Auto 15.7 % (20-44); Mean Corpuscular HGB Conc 34 gm/dL (32-36); Mean Corpuscular Hemoglobin 33 pg (26-34); Mean Corpuscular Volume 95 fL (80-100); Neutrophils Percent Auto 63.3 % (42.0-72.0); Platelet Count* 82 K/uL (140-440); RDW Coefficient of Variation % 15.6 % (11.5-15.5); Red Blood Count 3.25 m/uL (4.30-5.90)
[2024-12-19 06:58] LABS: Chloride* 99 mmol/L (96-114); Potassium* 3.4 mmol/L (3.6-5.1); Sodium* 133 mmol/L (135-149)
[2024-12-19 07:01] LABS: Anion Gap 9 mEq/L (7-15); Blood Urea Nitrogen* 20 mg/dL (7-30); Calcium* 8.8 mg/dL (8.4-10.6); Carbon Dioxide* 25 mmol/L (20-32); Creatinine* 1.2 mg/dL (0.5-1.5); Est. Creatinine Clearance* 55.64; Estimated Glomerular Filt Rate 64 ml/min; Glucose* 157 mg/dL (60-115)
[2024-12-19 07:06] LABS: Slide Review Reflex No; White Blood Count* 1.66 K/uL (4.50-11.00)
[2024-12-19] MEDS: INSULIN ASPART 100 UNIT/ML SUBCUT ×4 (07:48→21:42)
[2024-12-19 07:52] LABS: C Reactive Protein* 16.3 mg/dL (0.5-1.0)
[2024-12-19] MEDS: APIXABAN 5 MG TABLET PO ×2 (09:28→20:34)
[2024-12-19] MEDS: METFORMIN ER 500 MG 1000 MG PO ×2 (09:28→20:35)
[2024-12-19] MEDS: POTASSIUM CHLORIDE 10 MEQ CAPSULE ER 20 MEQ PO ×2 (09:28→20:34)
[2024-12-19] MEDS: ACYCLOVIR 200 MG CAPSULE 400 MG PO ×2 (09:28→20:34)
[2024-12-19] MEDS: PREGABALIN 75 MG CAPSULE PO ×2 (09:29→20:37)
[2024-12-19] MEDS: IPRAT-ALBUT 0.5-2.5 MG/3 ML NEB 1 NEB IH ×4 (09:30→20:35)
[2024-12-19] MEDS: SODIUM CHLORIDE 0.9 % (FLUSH) 10 ML SYRINGE 5 ML IVF ×2 (09:32→20:35)
[2024-12-19] MEDS: AZITHROMYCIN 250 MG TABLET 500 MG PO (11:20)
--- NOTE | 2024-12-19 14:09 | PM.IMPN1 ---
Assessment and Plan Assessment and plan (1) Acute hypoxic respiratory failure: Problem comment: -CAP -s/p 3 days of Zosyn and Azithromycin -Levaquin started on evening of 12/19 - needs total of 7 doses. -HFO2 -no steroids -vib peep -RT comanage 12/19 - improving. Status: Acute (2) Pneumonia: Problem comment: as above -Left lung base - consolidation and intersitial prominence Status: Acute (3) Immunocompromised: Problem comment: -Due to multiple myeloma and therapy for it. Monitor for evidence of infectious complication, opportunistic infections -Mild chronic pancytopenia; neutropenia, ANC 1100 on 12/19 Status: Acute (4) Diabetes mellitus: Problem comment: Historically fairly well controlled. Marked blood sugar elevations yesterday likely due to steroid admin on day of admission as well as acute illness -cont metformin/insulin Status: Acute (5) Multiple myeloma: Problem comment: Ongoing treatment. Mild chronic pancytopenia. Oncologist is Dr. Valerio [phone]. Oncologist recommends holding Revlimid until outpatient oncology follow-up in 12 days. Continue to monitor. Pancytopenia modestly worse on December 18 Status: Acute (6) Chronic anticoagulation: Problem comment: Eliquis Status: Acute (7) Peripheral neuropathy: Problem comment: Due to myeloma treatment and also possibly diabetes mellitus. Status: Acute Subjective Date Seen: 12/19/24 Interval history: Daily Progress Note - #: 3 CC: 24 HOUR UPDATE: Had a really good night. Slept well with the high-flow. Is now ambulating in the halls for short periods of time on a OxyMask. FiO2 on his high-flow is slowly being decreased back to baseline of room air. Humidification seems to be helping his mucus plugging. Labs, Micro, Rads, Interventions: Leukopenia. WBC count 1.66 - ANC 1,100. Hemoglobin is drifting but stable from baseline. 10.6. Mild thrombocytopenia 82,000 Mild hyponatremia and hypokalemia CRP down trending MRSA negative Blood cultures negative today Objective: Alert, making jokes. Vitals: Reviewed see above Lungs: Clear. Decreased in the left lower base Cardiac: S1S2. Disposition/Potential discharge - Home with . Today I spent 50minutes seeing the patient, reviewing [facility]panse and EPIC notes/diagnostics, discussing the care plan with our care time that includes social work, PT/OT, pharmacy, RT, shelter and documenting my impressions and plan in the medical record. Exam Const: Vital Signs, click to edit/add: Vital Signs - 24 hr 12/18/24 14:33 12/18/24 14:44 12/18/24 15:59 Temperature 99.2 F Pulse Rate 77 Pulse Rate [Pulse Oximeter] 81 81 Respiratory Rate 22 22 Blood Pressure [Le ft Arm] 137/77 Pulse Oximetry 90 Oxygen Delivery Me thod High Flow Nasal Ca nnula Oxygen Flow Rate Fraction of Inspir ed Oxygen 12/18/24 16:00 12/18/24 17:00 12/18/24 18:00 Temperature 99.7 F H Pulse Rate Pulse Rate [Pulse Oximeter] 79 85 Respiratory Rate 20 35 H Blood Pressure [Le ft Arm] 150/80 H 160/76 H Pulse Oximetry 93 93 Oxygen Delivery Me thod High Flow Nasal Ca nnula Oxygen Flow Rate 35 35 Fraction of Inspir ed Oxygen 50 50 50 12/18/24 19:00 12/18/24 19:00 12/18/24 19:00 Temperature Pulse Rate 95 Pulse Rate [Pulse Oximeter] Respiratory Rate Blood Pressure [Le ft Arm] Pulse Oximetry 90 Oxygen Delivery Me thod Oxygen Flow Rate Fraction of Inspir ed Oxygen 50 12/18/24 19:15 12/18/24 19:24 12/18/24 19:24 Temperature 100 F H 100 F H Pulse Rate Pulse Rate [Pulse Oximeter] 89 Respiratory Rate 30 H 30 H Blood Pressure [Le ft Arm] 151/73 H Pulse Oximetry 92 Oxygen Delivery Me thod High Flow Nasal Ca nnula Oxygen Flow Rate 35 Fraction of Inspir ed Oxygen 50 12/18/24 20:15 12/18/24 20:50 12/18/24 20:50 Temperature 99.7 F H 99.3 F Pulse Rate Pulse Rate [Pulse Oximeter] 75 Respiratory Rate 26 H Blood Pressure [Le ft Arm] 114/71 Pulse Oximetry 94 Oxygen Delivery Me thod High Flow Nasal Ca nnula Oxygen Flow Rate 35 Fraction of Inspir ed Oxygen 50 50 12/18/24 23:00 12/18/24 23:00 12/18/24 23:00 Temperature Pulse Rate 64 Pulse Rate [Pulse Oximeter] Respiratory Rate Blood Pressure [Le ft Arm] Pulse Oximetry 93 Oxygen Delivery Me thod Oxygen Flow Rate Fraction of Inspir ed Oxygen 50 12/18/24 23:18 12/18/24 23:18 12/19/24 01:00 Temperature 98.2 F Pulse Rate Pulse Rate [Pulse Oximeter] 66 Respiratory Rate 24 24 Blood Pressure [Le ft Arm] 123/68 Pulse Oximetry 92 Oxygen Delivery Me thod Oxygen Flow Rate 35 Fraction of Inspir ed Oxygen 50 50 12/19/24 02:00 12/19/24 03:00 12/19/24 03:00 Temperature 98.0 F Pulse Rate Pulse Rate [Pulse Oximeter] 72 Respiratory Rate 25 H Blood Pressure [Le ft Arm] 140/74 H Pulse Oximetry 92 93 Oxygen Delivery Me thod High Flow Nasal Ca nnula Oxygen Flow Rate 35 Fraction of Inspir ed Oxygen 50 50 12/19/24 03:00 12/19/24 03:17 12/19/24 03:24 Temperature 98.3 F Pulse Rate 71 Pulse Rate [Pulse Oximeter] 71 Respiratory Rate 24 28 H Blood Pressure [Le ft Arm] 148/78 H Pulse Oximetry 90 Oxygen Delivery Me thod Oxygen Flow Rate 35 Fraction of Inspir ed Oxygen 50 12/19/24 05:00 12/19/24 05:14 12/19/24 07:00 Temperature 98.6 F Pulse Rate 67 Pulse Rate [Pulse Oximeter] 71 Respiratory Rate 24 Blood Pressure [Le ft Arm] 138/73 Pulse Oximetry 94 Oxygen Delivery Me thod High Flow Nasal Ca nnula Oxygen Flow Rate 35 Fraction of Inspir ed Oxygen 50 50 12/19/24 07:56 12/19/24 08:00 12/19/24 08:00 Temperature 98.6 F Pulse Rate Pulse Rate [Pulse Oximeter] 72 Respiratory Rate 28 H Blood Pressure [Le ft Arm] 123/74 Pulse Oximetry 94 95 Oxygen Delivery Me thod High Flow Nasal Ca nnula Oxygen Flow Rate 35 Fraction of Inspir ed Oxygen 50 40 12/19/24 09:47 12/19/24 11:15 12/19/24 11:54 Temperature 98.1 F Pulse Rate Pulse Rate [Pulse Oximeter] 74 Respiratory Rate 24 Blood Pressure [Le ft Arm] 133/76 Pulse Oximetry 92 Oxygen Delivery Me thod High Flow Nasal Ca nnula Oxygen Flow Rate 35 35 Fraction of Inspir ed Oxygen 35 35 0.40 12/19/24 12:08 12/19/24 12:08 12/19/24 13:06 Temperature Pulse Rate Pulse Rate [Pulse Oximeter] Respiratory Rate 28 H Blood Pressure [Le ft Arm] Pulse Oximetry 94 94 Oxygen Delivery Me thod High Flow Nasal Ca nnula Oxygen Flow Rate 35 Fraction of Inspir ed Oxygen 30 30 Labs Labs: Laboratory Results - last 24 hr 12/19/24 06:22 WBC 1.66 L* RBC 3.25 L Hgb 10.6 L Hct 31.0 L MCV 95 MCH 33 MCHC 34 RDW Coeff of Yamil 15.6 H Plt Count 82 L Neut % (Auto) 63.3 Lymph % (Auto) 15.7 L Lipscomb % (Auto) 9.0 Eos % (Auto) 11.4 H Baso % (Auto) 0.0 Neut # (Auto) 1.10 L Lymph # (Auto) 0.30 L Lipscomb # (Auto) 0.10 Eos # (Auto) 0.20 Baso # (Auto) 0.00 Abs Immat Gran (auto) 0.00 Imm/Tot Granulo (auto) 0.6 Sodium 133 L Potassium 3.4 L Chloride 99 Carbon Dioxide 25 Anion Gap 9 BUN 20 Creatinine 1.2 Estimated Creat Clear 55.64 Estimated GFR 64 Glucose 157 H Calcium 8.8 C-Reactive Protein 16.3 H
--- NOTE | 2024-12-19 14:51 | PC.NURSE ---
?The patient is pleasant and alert and oriented. VSS on HF NC throughout the shift. Settings are 35L, 25% and 36 degrees. The patient tolerated being titrated down well, saturations maintain greater than 93%.The patient is noted to be tachypnea at rest, although does not report any SOB at rest.? No reports of pain. Intermittent productive moist cough. 2 BM?s this shift. Respiratory okayed the patient to ambulate with NC and portable O2 tank. The patient tolerates this okay, but has a noted amount of SOB with the exertion. He recovers well after activity. Tele NSR. Appetite is intact and intake is adequate. Call light within reach. Wanda WALKER BSN?
--- NOTE | 2024-12-19 19:42 | RESP.RT ---
Patient had a much better day. We were able to wean FiO2 down to .25 and SATs remained 92-95%. He was able to walk the halls today and will attempt to wean off supplemental O2 in the morning. We will still use HFNC to assist with humidity and secretion clearance. Patient has been able to use Aerobika on his own and has cleared much more mucus today.
--- NOTE | 2024-12-19 19:52 | PC.NURSE ---
The patient was alert and oriented and vitally stable while on high flow oxygen when transferred into my care at 1500. Lung sounds have crackles and the lower lobes are diminished. Chronic neuropathy of hands and feet. Pulses intact. No sign of swelling. Overall presentation is that of a patient in a stable state of health. Transferring SBA. [facility]
[2024-12-19] MEDS: levoFLOXacin 500 MG TABLET PO (20:34)
[2024-12-20] VITALS (18 sets, daily range): BP systolic 110–142; BP diastolic 67–99; PULSE 63–85; RESP 18–22; TEMP 36.4–36.7; O2SAT 90–96
[2024-12-20 06:53] LABS: Basophils Percent Auto 0.6 % (0.0-3.0); Eosinophils Percent Auto 11.4 % (0.0-7.0); Hematocrit 28.7 % (37.0-53.0); Hemoglobin* 9.8 gm/dL (13.5-17.5); Immature Granulocytes Pct Auto 0.6 %; Lymphocytes Percent Auto 15.7 % (20-44); Mean Corpuscular HGB Conc 34 gm/dL (32-36); Mean Corpuscular Hemoglobin 32 pg (26-34); Mean Corpuscular Volume 94 fL (80-100); Monocytes Percent Auto 9.6 % (0.0-11.0); Neutrophils Percent Auto 62.1 % (42.0-72.0); Platelet Count* 87 K/uL (140-440); RDW Coefficient of Variation % 15.2 % (11.5-15.5); Red Blood Count 3.04 m/uL (4.30-5.90)
[2024-12-20 06:57] LABS: Slide Review Reflex No; White Blood Count* 1.66 K/uL (4.50-11.00)
[2024-12-20 07:05] LABS: Chloride* 103 mmol/L (96-114); Potassium* 3.5 mmol/L (3.6-5.1); Sodium* 135 mmol/L (135-149)
[2024-12-20 07:08] LABS: Anion Gap 6 mEq/L (7-15); Blood Urea Nitrogen* 15 mg/dL (7-30); Calcium* 8.8 mg/dL (8.4-10.6); Carbon Dioxide* 26 mmol/L (20-32); Est. Creatinine Clearance* 66.77; Estimated Glomerular Filt Rate 80 ml/min; Glucose* 140 mg/dL (60-115)
--- NOTE | 2024-12-20 07:11 | PC.NURSE ---
Pt is alert and oriented x3. Afebrile. Pt denies pain, chest pain, SOB, and N/V. Pt walked x2. One walk was without O2 per RT Liam pt walked with oximeter pt maintained O2 stats of 90-93%. Pt is up ad shaggy, voiding, and tolerating a therapeutic diet. ?
[2024-12-20 07:35] LABS: C Reactive Protein* 11.3 mg/dL (0.5-1.0)
--- NOTE | 2024-12-20 08:10 | CRLHL7_ITS ---
For Patients: As a result of the Century Cures Act, medical imaging exams and procedure reports are released immediately into your electronic medical record. You may view this report before your referring provider. If you have questions, please contact your health care provider. INDICATION: Pneumonia COMPARISON: 12/18/2024 TECHNIQUE: PA and lateral 2 view chest. FINDINGS: Lung volumes are moderate. Patchy consolidation in the left lower lobe in lingula. Small area of consolidation in the right mid lung that measures about 2 centimeters. No pulmonary edema. No pleural effusion. No pneumothorax. No pneumomediastinum. Normal cardiomediastinal silhouette. Bones: Exaggerated thoracic kyphosis with multilevel wedge deformities and disc degenerative change. No acute bone findings. IMPRESSION: Multifocal lung opacities. These are most severe are in the left lower lobe. No parapneumonic effusion. Recommend follow-up to resolution. Dictated by Helen Choi MD @ 12/20/2024 9:33:42 AM (Electronically Signed)
[2024-12-20] MEDS: POTASSIUM CHLORIDE 10 MEQ CAPSULE ER 20 MEQ PO ×2 (09:37→21:18)
[2024-12-20] MEDS: ACYCLOVIR 200 MG CAPSULE 400 MG PO ×2 (09:38→21:18)
[2024-12-20] MEDS: APIXABAN 5 MG TABLET PO ×2 (09:38→21:18)
[2024-12-20] MEDS: IPRAT-ALBUT 0.5-2.5 MG/3 ML NEB 1 NEB IH ×3 (09:38→21:18)
[2024-12-20] MEDS: predniSONE 20 MG TABLET 40 MG PO (09:38)
[2024-12-20] MEDS: SODIUM CHLORIDE 0.9 % (FLUSH) 10 ML SYRINGE 5 ML IVF ×2 (09:39→21:10)
[2024-12-20] MEDS: METFORMIN ER 500 MG 1000 MG PO ×2 (10:53→21:18)
[2024-12-20] MEDS: PREGABALIN 75 MG CAPSULE PO ×2 (10:53→21:20)
--- NOTE | 2024-12-20 14:44 | P.IMPN_ITS ---
Assessment and Plan Assessment and plan (1) Acute hypoxic respiratory failure: Problem comment: -CAP -s/p 3 days of Zosyn and Azithromycin -Levaquin started on evening of 12/19 - needs total of 10-14 doses given bacteremia -HFO2 at 21% - for humidification -steroids, oral prednisone, x 5 days - loosen mucus plugging -vib peep -RT comanage 12/19 - improving. Status: Acute (2) Pneumonia: Problem comment: -as above CXR 12/20/24: Lung volumes are moderate. Patchy consolidation in the left lower lobe in lingula. Small area of consolidation in the right mid lung that measures about 2 centimeters. No pulmonary edema. No pleural effusion. No pneumothorax. No pneumomediastinum. s/p 3 days of Zosyn and Azithro. now on oral Levaquin 12/19. will need 10-14 days of abx given bacteremia. Status: Acute (3) Bacteremia: Problem comment: both bottles gram neg rods at 68 hours await c/s levaquin is adequate given clinical improvement Status: Acute (4) Immunocompromised: Problem comment: -Due to multiple myeloma and therapy for it. Monitor for evidence of infectious complication, opportunistic infections -Mild chronic pancytopenia; neutropenia, ANC 1100 on 12/19 Status: Acute (5) Diabetes mellitus: Problem comment: Historically fairly well controlled. Marked blood sugar elevations yesterday likely due to steroid admin on day of admission as well as acute illness -cont metformin/insulin Status: Acute (6) Multiple myeloma: Problem comment: Ongoing treatment. Mild chronic pancytopenia. Oncologist is Dr. Valerio [phone]. Oncologist recommends holding Revlimid until outpatient oncology follow-up in 12 days. Continue to monitor. Pancytopenia modestly worse on December 18 Status: Acute (7) Chronic anticoagulation: Problem comment: Eliquis Status: Acute (8) Peripheral neuropathy: Problem comment: Due to myeloma treatment and also possibly diabetes mellitus. Status: Acute Subjective Date Seen: 12/20/24 Interval history: Daily Progress Note - Hospital Medicine Day #: 4 CC: CAP, bacteremia (?) 24 HOUR UPDATE: Had a really good night. Slept well with the high-flow. Is now ambulating in the halls for short periods of time on ROOM AIR! FiO2 on his high-flow is at 21%. b Humidification seems to be helping his mucus plugging. -started prednisone 40mg daily for 5 days, maybe less -oral levaquin transition Labs, Micro, Rads, Interventions: Leukopenia. WBC count 1.66 - ANC 1,100. Hemoglobin is drifting but stable from baseline. 9.8 Mild thrombocytopenia 87,000 Mild hypokalemia CRP down trending MRSA negative Blood cultures from admission flagged positive for gram neg rods; both bottles at 68 hours. The second set were negative drawn the same day (12/17) Objective: Alert, making jokes. looks strong walking in the hallways Vitals: Reviewed see above Lungs: Clear. Decreased in the left lower base Cardiac: S1S2. Disposition/Potential discharge - Home with . Today I spent 50minutes seeing the patient, reviewing Expanse and EPIC notes/diagnostics, discussing the care plan with our care time that includes social work, PT/OT, pharmacy, RT, penitentiary and documenting my impressions and plan in the medical record. Exam Const: Vital Signs, click to edit/add: Vital Signs - 24 hr 12/19/24 15:19 12/19/24 15:27 12/19/24 15:28 Temperature 98.1 F Pulse Rate 71 Pulse Rate [Pulse Oximeter] 70 Respiratory Rate 18 Blood Pressure [Le ft Arm] 126/72 Pulse Oximetry 92 Oxygen Delivery Me thod Room Air Oxygen Flow Rate Fraction of Inspir ed Oxygen 25 12/19/24 16:00 12/19/24 17:00 12/19/24 19:26 Temperature Pulse Rate Pulse Rate [Pulse Oximeter] Respiratory Rate 20 Blood Pressure [Le ft Arm] Pulse Oximetry 92 Oxygen Delivery Me thod Oxygen Flow Rate Fraction of Inspir ed Oxygen 25 12/19/24 20:00 12/19/24 20:12 12/19/24 20:12 Temperature 97.5 F L Pulse Rate Pulse Rate [Pulse Oximeter] 73 Respiratory Rate 20 Blood Pressure [Le ft Arm] 123/71 Pulse Oximetry 94 94 Oxygen Delivery Me thod High Flow Nasal Ca nnula Oxygen Flow Rate 35 Fraction of Inspir ed Oxygen 25 25 12/19/24 21:48 12/19/24 22:00 12/19/24 22:33 Temperature 97.9 F Pulse Rate 67 Pulse Rate [Pulse Oximeter] 72 Respiratory Rate 20 Blood Pressure [Le ft Arm] 118/77 Pulse Oximetry 94 Oxygen Delivery Me thod High Flow Nasal Ca nnula Oxygen Flow Rate 35 Fraction of Inspir ed Oxygen 25 12/20/24 00:00 12/20/24 00:00 12/20/24 02:00 Temperature Pulse Rate Pulse Rate [Pulse Oximeter] Respiratory Rate Blood Pressure [Le ft Arm] Pulse Oximetry 94 Oxygen Delivery Me thod Oxygen Flow Rate Fraction of Inspir ed Oxygen 25 12/20/24 02:54 12/20/24 04:00 12/20/24 04:00 Temperature 97.5 F L Pulse Rate Pulse Rate [Pulse Oximeter] 63 Respiratory Rate 18 Blood Pressure [Le ft Arm] 119/68 Pulse Oximetry 94 93 Oxygen Delivery Me thod Room Air Oxygen Flow Rate Fraction of Inspir ed Oxygen 25 12/20/24 06:00 12/20/24 08:00 12/20/24 08:00 Temperature 98.1 F Pulse Rate Pulse Rate [Pulse Oximeter] 66 Respiratory Rate 22 Blood Pressure [Le ft Arm] 110/67 Pulse Oximetry 90 90 Oxygen Delivery Me thod High Flow Nasal Ca nnula Oxygen Flow Rate Fraction of Inspir ed Oxygen 25 12/20/24 08:00 12/20/24 10:00 12/20/24 10:59 Temperature 97.7 F Pulse Rate Pulse Rate [Pulse Oximeter] 85 Respiratory Rate 22 Blood Pressure [Le ft Arm] 129/72 Pulse Oximetry 93 Oxygen Delivery Me thod Room Air Oxygen Flow Rate Fraction of Inspir ed Oxygen 21 21 12/20/24 12:00 12/20/24 14:00 12/20/24 14:00 Temperature Pulse Rate Pulse Rate [Pulse Oximeter] Respiratory Rate Blood Pressure [Le ft Arm] Pulse Oximetry 90 Oxygen Delivery Me thod Oxygen Flow Rate Fraction of Inspir ed Oxygen 21 21 Labs Labs: Laboratory Results - last 24 hr 12/20/24 06:15 WBC 1.66 L* RBC 3.04 L Hgb 9.8 L Hct 28.7 L MCV 94 MCH 32 MCHC 34 RDW Coeff of Yamil 15.2 Plt Count 87 L Neut % (Auto) 62.1 Lymph % (Auto) 15.7 L [place] % (Auto) 9.6 Eos % (Auto) 11.4 H Baso % (Auto) 0.6 Neut # (Auto) 1.00 L Lymph # (Auto) 0.30 L [place] # (Auto) 0.20 Eos # (Auto) 0.20 Baso # (Auto) 0.00 Abs Immat Gran (auto) 0.00 Imm/Tot Granulo (auto) 0.6 Sodium 135 Potassium 3.5 L Chloride 103 Carbon Dioxide 26 Anion Gap 6 L BUN 15 Creatinine 1.0 Estimated Creat Clear 66.77 Estimated GFR 80 Glucose 140 H Calcium 8.8 C-Reactive Protein 11.3 H
--- NOTE | 2024-12-20 15:11 | RESP.RT ---
Patient has been able to be weaned off of supplemental O2. Patient is still clearing significant amount of mucus, so he will stay on HFNC while resting to assist in humidification and mucus clearance. Patient has been able to walk the halls today on room air keeping his SATs in the low 90s.
--- NOTE | 2024-12-20 18:03 | PC.NURSE ---
The patient is pleasant and cooperative throughout cares. He is tolerating HF with FIO2 @ room air, needed for humidification. Ambulating in the halls throughout the day. The patient also showered today. No reports of pain. Still noted to have a productive cough. Call light within reach. Wanda WALKER BSN
[2024-12-20] MEDS: INSULIN ASPART 100 UNIT/ML SUBCUT ×2 (18:11→21:19)
[2024-12-20] MEDS: levoFLOXacin 500 MG TABLET PO (21:18)
[2024-12-20] MEDS: guaiFENesin 600 MG TAB.ER.12H 1200 MG PO (21:18)
[2024-12-21] VITALS (9 sets, daily range): BP systolic 132–146; BP diastolic 68–78; PULSE 60–68; RESP 18–22; TEMP 36.4–36.5; O2SAT 90–94
--- NOTE | 2024-12-21 06:30 | PC.NURSE ---
Pt is alert and oriented x3. Afebrile. Pt denies pain, chest pain, SOB, and N/V. Pt walked halls up and down x3 w/o O2, tolerating well. When resting pt is on high flow nasal cannula maintaining O2 stats of 90-95%. Pt is up ad shaggy, voiding, and tolerating a therapeutic diet. ?
[2024-12-21 06:37] LABS: HCO3 VBG 26 mmol/L (21-28); PCO2 VBG 44 mmHG (40-50); PO2 VBG < 30.1 mmHG (25-47); pH VBG 7.379 (7.32-7.43)
[2024-12-21 06:45] LABS: Basophils Percent Auto 0.5 % (0.0-3.0); Eosinophils Percent Auto 1.5 % (0.0-7.0); Hematocrit 30.7 % (37.0-53.0); Hemoglobin* 10.4 gm/dL (13.5-17.5); Immature Granulocytes Pct Auto 0.5 %; Lymphocytes Percent Auto 13.1 % (20-44); Mean Corpuscular HGB Conc 34 gm/dL (32-36); Mean Corpuscular Hemoglobin 32 pg (26-34); Mean Corpuscular Volume 94 fL (80-100); Monocytes Percent Auto 9.6 % (0.0-11.0); Neutrophils Percent Auto 74.8 % (42.0-72.0); Platelet Count* 99 K/uL (140-440); RDW Coefficient of Variation % 15.1 % (11.5-15.5); Red Blood Count 3.27 m/uL (4.30-5.90)
[2024-12-21 06:48] LABS: Slide Review Reflex No; White Blood Count* 1.98 K/uL (4.50-11.00)
[2024-12-21 06:59] LABS: Chloride* 104 mmol/L (96-114); Sodium* 137 mmol/L (135-149)
[2024-12-21 07:01] LABS: Blood Urea Nitrogen* 22 mg/dL (7-30); Est. Creatinine Clearance* 66.77; Estimated Glomerular Filt Rate 80 ml/min
[2024-12-21 07:02] LABS: Anion Gap 8 mEq/L (7-15); Calcium* 9.6 mg/dL (8.4-10.6); Carbon Dioxide* 25 mmol/L (20-32); Glucose* 149 mg/dL (60-115)
[2024-12-21 07:05] LABS: C Reactive Protein* 7.1 mg/dL (0.5-1.0)
[2024-12-21] MEDS: predniSONE 20 MG TABLET 40 MG PO (09:37)
[2024-12-21] MEDS: guaiFENesin 600 MG TAB.ER.12H 1200 MG PO (09:38)
[2024-12-21] MEDS: POTASSIUM CHLORIDE 10 MEQ CAPSULE ER 20 MEQ PO (09:38)
[2024-12-21] MEDS: IPRAT-ALBUT 0.5-2.5 MG/3 ML NEB 1 NEB IH (09:39)
[2024-12-21] MEDS: APIXABAN 5 MG TABLET PO (09:39)
[2024-12-21] MEDS: METFORMIN ER 500 MG 1000 MG PO (09:39)
[2024-12-21] MEDS: PREGABALIN 75 MG CAPSULE PO (09:39)
[2024-12-21] MEDS: ACYCLOVIR 200 MG CAPSULE 400 MG PO (09:39)
[2024-12-21] MEDS: SODIUM CHLORIDE 0.9 % (FLUSH) 10 ML SYRINGE 5 ML IVF (09:40)
--- NOTE | 2024-12-21 13:10 | PC.NURSE ---
Patient discharged home with . All questions answered. Tolerating a regular diet. Ambulating independently on RA. Denies pain. Urinating and having a BM. PIV out and catheter intact. Vital signs stable.
--- NOTE | 2024-12-21 16:12 | PM.DS1 ---
DS: Providers Provider Date Seen: 12/21/24 Date of admission: 12/17/24 10:12 Primary care physician: BRIANNA VÁSQUEZ DO Admitting Clinician: Joseph Oglesby MD Attending Physician on discharge: [facility]: 12/21/24 DS: Diagnosis Discharge Diagnosis (1) Acute hypoxic respiratory failure: Status: Acute Problem details: -secondary to community-acquired pneumonia. -s/p 3 days of Zosyn and Azithromycin -Levaquin started on evening of 12/19 - needs total of 10 outpatient doses given bacteremia -weaned from high-flow oxygen support. Ambulating on room air at discharge. -steroids, oral prednisone, x 5 days - loosen mucus plugging (2) Pneumonia: Status: Acute Problem details: CXR: Lung volumes are moderate. Patchy consolidation in the left lower lobe in lingula. Small area of consolidation in the right mid lung that measures about 2 centimeters. No pulmonary edema. No pleural effusion. No pneumothorax. No pneumomediastinum. s/p 3 days of Zosyn and Azithro. now on oral Levaquin 12/19. will need 10 days of outpatient abx given bacteremia. (3) Bacteremia: Status: Acute Problem details: both bottles gram neg rods at 68 hours await c/s levaquin is adequate given clinical improvement (4) Immunocompromised: Status: Acute Problem details: -Due to multiple myeloma and therapy for it. Monitor for evidence of infectious complication, opportunistic infections -Mild chronic pancytopenia; neutropenia, ANC improving at discharge (5) Multiple myeloma: Status: Acute Problem details: Ongoing treatment. Mild chronic pancytopenia. Oncologist is Dr. Valerio [phone]. Oncologist recommends holding Revlimid until outpatient oncology follow-up in 12 days. Continue to monitor. (6) Diabetes mellitus: Status: Acute Problem details: Historically fairly well controlled. Marked blood sugar elevations yesterday likely due to steroid admin on day of admission as well as acute illness -cont metformin/insulin (7) Chronic anticoagulation: Status: Acute Problem details: Eliquis DS: Summary Status at Discharge Cognitive/behavioral status at discharge: FINAL DIAGNOSIS/FOLLOW UP ISSUES: 1. Community-acquired bilateral pneumonia. He needed high-flow oxygen for support. He received IV Zosyn and azithromycin followed by oral Levaquin. He was given a short course of steroids. He used vibratory peep well. And he slowly improved. Severity of his disease was likely affected by his chronic immunocompromised state given his therapy for multiple myeloma. He had a moderate pancytopenia that we monitored. He was told to follow-up with his oncologist and hold Revlimid until he is seen by his oncology provider. 2. Bacteremia, Gram-negative both anaerobic and aerobic bottles. This did not flagged positive until 68 hours into his hospital stay. He was very clinically stable and no evidence of bacteremia clinically. Follow-up blood cultures were negative. Sensitivities were still pending at the time of discharge. However given his excellent clinical response and lack of symptoms, we felt oral Levaquin extended for 10 days post discharge was adequate treatment for his bacteremia. Keeping in mind he had had 3 days of Zosyn and azithromycin and had started oral Levaquin on 12/19. 2. Follow-up chest x-ray or CT is necessary within the next 6 weeks. BRIEF HOSPITAL COURSE: Patient was admitted for 5 days. Synopsis of acute inpatient issues are outlined above. Chronic medical conditions with notable findings outlined above. Each day Alberto improved. We feel as his immunocompromised state and significant mucus plugging kept him hypoxic longer than initially predicted. However he did well with high-flow oxygen that was eventually weaned to 21% but used for the humidification. He did well with vibratory PEEP, oral prednisone and the transition from IV to oral antibiotics. We recommend he see both his oncologist and PCP in the coming weeks. Determination of when he restarts Revlimid is up to Oncology. Follow-up chest imaging and any questions regarding his blood sugar management given his acute illness and supplemental steroids can be directed to his PCP. DISCHARGE MEDICATIONS: See Reconciled list - SIGNIFICANT CHANGES: Oral Levaquin for 10 days Three more days of oral prednisone Nebulizer and DuoNebs sent to pharmacy Specific instructions to the patient and follow-up are outlined below. REVIEW OF SYSTEMS No new chest pain or dyspnea Pain controlled No voiding difficulties Tolerating diet challenge PHYSICAL EXAM: CONSTITUTIONAL: Conversive, good historian. A/O. Knows setting and context. GENERAL: Well-developed and above ideal body weight, in no respiratory distress. VITAL SIGNS: see record. HEENT: Sclerae are anicteric. No petechiae. CARDIAC: rhythm is regular. There is no S3 or rub. No harsh murmurs. Extremities show trace edema with symmetrical pulses. PULM: good air entry with no wheeze. NEURO: Speech is fluent. A brief neurologic exam is negative. SKIN: No rashes, petechiae, concerning changes PSYCHIATRIC: Euthymic. DISPOSITION: Home with Time spent on discharge 37 minutes. Functional status at discharge: independent ambulation Overall status at discharge: patient is progressing back to baseline Time Spent with Patient Time attestation: Total time spent providing and/or coordinating discharge services: Time spent: Greater than 30 minutes Exam Const: Vital Signs, click to edit/add: Vital Signs - 24 hr 12/20/24 17:00 12/20/24 18:00 12/20/24 19:40 Temperature Pulse Rate [Pulse Oximeter] Respiratory Rate Blood Pressure [Le ft Arm] Pulse Oximetry 92 Oxygen Delivery Me thod Oxygen Flow Rate Fraction of Inspir ed Oxygen 21 12/20/24 19:40 12/20/24 21:00 12/20/24 21:39 Temperature 97.5 F L 97.6 F Pulse Rate [Pulse Oximeter] 75 70 Respiratory Rate 18 18 Blood Pressure [Le ft Arm] 134/79 134/79 Pulse Oximetry 90 96 Oxygen Delivery Me thod High Flow Nasal Ca nnula High Flow Nasal Ca nnula Oxygen Flow Rate 35 35 Fraction of Inspir ed Oxygen 21 21 12/20/24 22:00 12/20/24 23:00 12/20/24 23:00 Temperature Pulse Rate [Pulse Oximeter] Respiratory Rate 20 Blood Pressure [Le ft Arm] Pulse Oximetry 95 Oxygen Delivery Me thod Oxygen Flow Rate Fraction of Inspir ed Oxygen 12/21/24 00:57 12/21/24 01:00 12/21/24 02:00 Temperature 97.6 F Pulse Rate [Pulse Oximeter] 60 Respiratory Rate 22 Blood Pressure [Le ft Arm] 146/78 H Pulse Oximetry 90 94 Oxygen Delivery Me thod High Flow Nasal Ca nnula Oxygen Flow Rate 35 Fraction of Inspir ed Oxygen 21 12/21/24 03:00 12/21/24 05:00 12/21/24 06:00 Temperature Pulse Rate [Pulse Oximeter] Respiratory Rate Blood Pressure [Le ft Arm] Pulse Oximetry 92 Oxygen Delivery Me thod Oxygen Flow Rate Fraction of Inspir ed Oxygen 21 12/21/24 09:00 12/21/24 09:18 12/21/24 09:18 Temperature 97.7 F Pulse Rate [Pulse Oximeter] 68 Respiratory Rate 22 Blood Pressure [Le ft Arm] 132/68 Pulse Oximetry 91 Oxygen Delivery Me thod High Flow Nasal Ca nnula Oxygen Flow Rate 35 21 Fraction of Inspir ed Oxygen 0.21 35 35 12/21/24 10:23 12/21/24 11:09 12/21/24 11:09 Temperature 97.7 F Pulse Rate [Pulse Oximeter] 68 Respiratory Rate 18 Blood Pressure [Le ft Arm] Pulse Oximetry 93 93 Oxygen Delivery Me thod High Flow Nasal Ca nnula Oxygen Flow Rate 21 Fraction of Inspir ed Oxygen 35 35 DS: Data Data Completed and Pending Labs on day of discharge: Labs from last 24 hours 12/21/24 06:27 WBC 1.98 L* RBC 3.27 L Hgb 10.4 L Hct 30.7 L MCV 94 MCH 32 MCHC 34 RDW Coeff of Yamil 15.1 Plt Count 99 L Neut % (Auto) 74.8 H Lymph % (Auto) 13.1 L [place] % (Auto) 9.6 Eos % (Auto) 1.5 Baso % (Auto) 0.5 Neut # (Auto) 1.50 L Lymph # (Auto) 0.30 L [place] # (Auto) 0.20 Eos # (Auto) 0.00 Baso # (Auto) 0.00 Abs Immat Gran (auto) 0.00 Imm/Tot Granulo (auto) 0.5 VBG pH 7.379 VBG pCO2 44 VBG pO2 < 30.1 VBG HCO3 26 Sodium 137 Potassium 4.0 Chloride 104 Carbon Dioxide 25 Anion Gap 8 BUN 22 Creatinine 1.0 Estimated Creat Clear 66.77 Estimated GFR 80 Glucose 149 H Calcium 9.6 C-Reactive Protein 7.1 H Preliminary micro results at discharge 12/17/24 09:07 Blood Culture - Preliminary Blood NO GROWTH AFTER 96 HOURS 12/17/24 06:55 Blood Culture - Preliminary Blood Gram negative nigel Discharge Plan Discharge Disposition: Home, Self-Care Date of Admission: 12/17/24 10:12 Attending Provider on Discharge: Latosha Whiting Primary Care Provider: BRIANNA ÁVSQUEZ Condition: Improved Anticipated Discharge Date/Time: 12/21/24 11:09 Discharge Medications: New guaifenesin [Mucinex] 600 mg Tablet Extended Release 12hr 1,200 mg PO BID Qty: 30 0RF prednisone 20 mg Tablet 40 mg PO DAILYWM Qty: 6 0RF levofloxacin 500 mg Tablet 500 mg PO Q24H Qty: 10 0RF ipratropium-albuterol 0.5 mg-3 mg(2.5 mg base)/3 mL solution for nebulization 3 ml inhalation Q6H PRNQty: 90 0RF (DME) nebulizer and compressor [All-In-One Nebulizer System] Device See Rx Instructions .Route Qty: 1 0RF Rx Instructions: As directed Continued acyclovir 400 mg tablet 400 mg PO BID potassium chloride 20 mEq packet 20 meq PO BID metformin 500 mg tablet extended release 24 hr 1,000 mg PO BID pregabalin 75 mg capsule 75 mg PO BID insulin degludec 100 unit/mL (3 mL) insulin pen 11 unit subcut Q24H Patient Comments: [NO ORIGINAL SIG] Eliquis 5 mg tablet 5 mg PO BID Held sulfamethoxazole-trimethoprim 400-80 mg tablet 1 tab PO DAILY Hold Instructions: Resume on 12/30/24. after you finish the levaquin lenalidomide [Revlimid] 10 mg capsule 10 mg PO DAILY Hold Instructions: Resume on 12/30/24. hold this until you see or talk to your oncologist Rx Instructions: STARTING 12/29/24 Discharge Orders: Discharge Order (Routine); Ordered 12/21/24 Ordered By: Latosha Whiting Patient Education: Prednisone (By mouth), Guaifenesin (By mouth), Levofloxacin (By mouth), Ipratropium/Albuterol (By breathing), How to Use a Nebulizer (DC), Bacteremia (DC) Additional Instructions: 1. Finish antibiotics (take w/food) 2. Three more days of prednisone 3. Nebulizer and solution sent to the pharmacy Activity Level: Activity as Tolerated Discharge Diet: Regular Follow Up Appointments: BRIANNA VÁSQUEZ DO [Primary Care Provider, Family Practice] - 12/31/24 11:25 am Referral Note: [facility] for Post-Hospital follow up appointment Forms: [facility] Info Instructions
== END 2024-12-21 13:10 | disposition home or self-care (01) | DRG 193 ==
LOC: ED 07:43 → MEDSURG 10:32
PROVIDERS: Family Medicine; Admitting Provider Family Medicine; Emergency Provider Family Medicine; PCP Student in an Organized Health Care Education/Training Program; Visit Provider Family Medicine
DX: J18.9 Pneumonia, unspecified organism (principal); J96.01 Acute respiratory failure with hypoxia; R78.81 Bacteremia; C90.00 Multiple myeloma not having achieved remission; D84.81 Immunodeficiency due to conditions classified elsewhere; Z94.84 Stem cells transplant status; E11.42 Type 2 diabetes mellitus with diabetic polyneuropathy; B96.89 Other specified bacterial agents as the cause of diseases classified elsewhere; Z86.718 Personal history of other venous thrombosis and embolism; Z79.01 Long term (current) use of anticoagulants; Z79.4 Long term (current) use of insulin; Z79.61 Long term (current) use of immunomodulator; Z79.620 Long term (current) use of immunosuppressive biologic; Z79.84 Long term (current) use of oral hypoglycemic drugs
CPT/HCPCS: 36415; 36600; 70450; 71045; 71046; 71260; 74177; 80048; 80053; 80076; 81001; 81003; 82565; 82803; 82962; 83605; 83690; 83735; 83880; 84145; 84484; 85025; 85379; 86140; 87040; 87076; 87081; 87086; 87181; 87449; 87631; 87800; 87899; 93005; 94640; 94664; 94761; 99284; 99285; 99291; A9270; J2543; J2919; J7030; J7512; Q9967

== ENCOUNTER 2025-02-18 07:59 | Outpatient (CLI) | payer MEDICARE, BC, SELFPAY | END 2025-02-18 08:00 | disposition home or self-care (01) | LOC: WOUND 07:59 | PROVIDERS: PCP Student in an Organized Health Care Education/Training Program; Visit Provider Nurse Practitioner Family | DX: E11.621 Type 2 diabetes mellitus with foot ulcer (principal); L97.512 Non-pressure chronic ulcer of other part of right foot with fat layer exposed; C90.00 Multiple myeloma not having achieved remission; Z94.81 Bone marrow transplant status; Z79.4 Long term (current) use of insulin; Z79.84 Long term (current) use of oral hypoglycemic drugs | CPT/HCPCS: 97597; G0463 ==

== ENCOUNTER 2025-02-25 09:12 | Outpatient (CLI) | payer MEDICARE, BC, SELFPAY | END 2025-02-25 09:13 | disposition home or self-care (01) | LOC: WOUND 09:12 | PROVIDERS: PCP Student in an Organized Health Care Education/Training Program; Visit Provider Nurse Practitioner Family | DX: E11.621 Type 2 diabetes mellitus with foot ulcer (principal); L97.512 Non-pressure chronic ulcer of other part of right foot with fat layer exposed; C90.00 Multiple myeloma not having achieved remission; Z94.81 Bone marrow transplant status; Z79.4 Long term (current) use of insulin | CPT/HCPCS: 97597 ==

== ENCOUNTER 2025-03-04 09:30 | Outpatient (CLI) | payer MEDICARE, BC, SELFPAY | END 2025-03-04 09:31 | disposition home or self-care (01) | LOC: WOUND 09:30 | PROVIDERS: PCP Student in an Organized Health Care Education/Training Program; Visit Provider Nurse Practitioner Family | DX: E11.621 Type 2 diabetes mellitus with foot ulcer (principal); L97.512 Non-pressure chronic ulcer of other part of right foot with fat layer exposed; C90.00 Multiple myeloma not having achieved remission; Z94.81 Bone marrow transplant status; Z79.84 Long term (current) use of oral hypoglycemic drugs | CPT/HCPCS: 97597 ==

== ENCOUNTER 2025-03-11 09:19 | Outpatient (CLI) | payer MEDICARE, BC, SELFPAY | END 2025-03-11 09:20 | disposition home or self-care (01) | LOC: WOUND 09:19 | PROVIDERS: PCP Student in an Organized Health Care Education/Training Program; Visit Provider Nurse Practitioner Family | DX: E11.621 Type 2 diabetes mellitus with foot ulcer (principal); L97.511 Non-pressure chronic ulcer of other part of right foot limited to breakdown of skin; Z79.84 Long term (current) use of oral hypoglycemic drugs | CPT/HCPCS: 97597 ==

== ENCOUNTER 2025-03-18 09:22 | Outpatient (CLI) | payer MEDICARE, BC, SELFPAY | END 2025-03-18 09:23 | disposition home or self-care (01) | LOC: WOUND 09:22 | PROVIDERS: PCP Student in an Organized Health Care Education/Training Program; Visit Provider Nurse Practitioner Family | DX: E11.621 Type 2 diabetes mellitus with foot ulcer (principal); L97.511 Non-pressure chronic ulcer of other part of right foot limited to breakdown of skin; Z79.4 Long term (current) use of insulin; Z79.84 Long term (current) use of oral hypoglycemic drugs; C90.00 Multiple myeloma not having achieved remission; Z94.81 Bone marrow transplant status | CPT/HCPCS: 97597 ==

== ENCOUNTER 2025-03-18 10:11 | Outpatient (CLI) | payer MEDICARE, BC, SELFPAY ==
--- NOTE | 2025-03-18 10:15 | CRLHL7_ITS ---
For Patients: As a result of the Cures Act, medical imaging exams and procedure reports are released immediately into your electronic medical record. You may view this report before your referring provider. If you have questions, please contact your health care provider. Indication: Toe wound Technique: Right foot 3 views Comparison: None Findings: No fracture. Vascular calcifications. No cortical destruction or periostitis. No soft tissue gas. Impression: No evidence of osteomyelitis. Dictated by Adarsh Lauren MD @ 03/18/2025 12:36:36 PM (Electronically Signed)
== END 2025-03-18 10:12 | disposition home or self-care (01) ==
LOC: RAD 10:13
PROVIDERS: PCP Student in an Organized Health Care Education/Training Program; Visit Provider Nurse Practitioner Family
DX: E11.621 Type 2 diabetes mellitus with foot ulcer (principal); L97.511 Non-pressure chronic ulcer of other part of right foot limited to breakdown of skin; Z79.4 Long term (current) use of insulin; Z79.84 Long term (current) use of oral hypoglycemic drugs; C90.00 Multiple myeloma not having achieved remission; Z94.81 Bone marrow transplant status
CPT/HCPCS: 73630; 97597

== ENCOUNTER 2025-03-25 09:23 | Outpatient (CLI) | payer BC, MEDICARE, SELFPAY | END 2025-03-25 09:24 | disposition home or self-care (01) | LOC: WOUND 09:23 | PROVIDERS: PCP Student in an Organized Health Care Education/Training Program; Visit Provider Nurse Practitioner Family | DX: E11.621 Type 2 diabetes mellitus with foot ulcer (principal); L97.511 Non-pressure chronic ulcer of other part of right foot limited to breakdown of skin; C90.00 Multiple myeloma not having achieved remission; Z94.81 Bone marrow transplant status; D84.81 Immunodeficiency due to conditions classified elsewhere; Z79.4 Long term (current) use of insulin; Z79.84 Long term (current) use of oral hypoglycemic drugs | CPT/HCPCS: 97597 ==

== ENCOUNTER 2025-04-01 09:32 | Outpatient (CLI) | payer BC, MEDICARE, SELFPAY | END 2025-04-01 09:33 | disposition home or self-care (01) | LOC: WOUND 09:32 | PROVIDERS: PCP Student in an Organized Health Care Education/Training Program | DX: E11.621 Type 2 diabetes mellitus with foot ulcer (principal); L97.511 Non-pressure chronic ulcer of other part of right foot limited to breakdown of skin; C90.00 Multiple myeloma not having achieved remission; M25.374 Other instability, right foot; Z94.81 Bone marrow transplant status; Z79.4 Long term (current) use of insulin; Z79.84 Long term (current) use of oral hypoglycemic drugs | CPT/HCPCS: 97597 ==

== ENCOUNTER 2025-04-08 09:18 | Outpatient (CLI) | payer MEDICARE, BC, SELFPAY | END 2025-04-08 09:19 | disposition home or self-care (01) | LOC: WOUND 09:18 | PROVIDERS: PCP Student in an Organized Health Care Education/Training Program; Visit Provider Nurse Practitioner Family | DX: E11.621 Type 2 diabetes mellitus with foot ulcer (principal); L97.511 Non-pressure chronic ulcer of other part of right foot limited to breakdown of skin; C90.00 Multiple myeloma not having achieved remission; D84.81 Immunodeficiency due to conditions classified elsewhere; M25.374 Other instability, right foot; Z94.81 Bone marrow transplant status; Z79.4 Long term (current) use of insulin | CPT/HCPCS: 97597 ==

== ENCOUNTER 2025-04-15 09:32 | Outpatient (CLI) | payer MEDICARE, BC, SELFPAY | END 2025-04-15 09:33 | disposition home or self-care (01) | LOC: WOUND 09:32 | PROVIDERS: PCP Student in an Organized Health Care Education/Training Program; Visit Provider Nurse Practitioner Family | DX: E11.621 Type 2 diabetes mellitus with foot ulcer (principal); L97.511 Non-pressure chronic ulcer of other part of right foot limited to breakdown of skin; C90.00 Multiple myeloma not having achieved remission; D84.81 Immunodeficiency due to conditions classified elsewhere; M25.374 Other instability, right foot; Z94.81 Bone marrow transplant status; Z79.4 Long term (current) use of insulin | CPT/HCPCS: 11042 ==

== ENCOUNTER 2025-04-22 08:20 | Outpatient (CLI) | payer MEDICARE, BC, SELFPAY | END 2025-04-22 08:21 | disposition home or self-care (01) | LOC: WOUND 08:20 | PROVIDERS: PCP Student in an Organized Health Care Education/Training Program | DX: E11.621 Type 2 diabetes mellitus with foot ulcer (principal); L97.511 Non-pressure chronic ulcer of other part of right foot limited to breakdown of skin; C90.00 Multiple myeloma not having achieved remission; D84.81 Immunodeficiency due to conditions classified elsewhere; M25.374 Other instability, right foot; Z94.81 Bone marrow transplant status; Z79.4 Long term (current) use of insulin | CPT/HCPCS: 97597 ==

== ENCOUNTER 2025-04-29 09:08 | Outpatient (CLI) | payer MEDICARE, BC, SELFPAY | END 2025-04-29 09:09 | disposition home or self-care (01) | LOC: WOUND 09:08 | PROVIDERS: PCP Student in an Organized Health Care Education/Training Program; Visit Provider Nurse Practitioner Family | DX: E11.621 Type 2 diabetes mellitus with foot ulcer (principal); L97.511 Non-pressure chronic ulcer of other part of right foot limited to breakdown of skin; C90.00 Multiple myeloma not having achieved remission; D84.81 Immunodeficiency due to conditions classified elsewhere; M25.374 Other instability, right foot; Z94.81 Bone marrow transplant status; Z79.4 Long term (current) use of insulin | CPT/HCPCS: 97597 ==

== ENCOUNTER 2025-05-06 09:33 | Outpatient (CLI) | payer MEDICARE, BC, SELFPAY | END 2025-05-06 09:34 | disposition home or self-care (01) | LOC: WOUND 09:33 | PROVIDERS: PCP Student in an Organized Health Care Education/Training Program; Visit Provider Nurse Practitioner Family | DX: E11.621 Type 2 diabetes mellitus with foot ulcer (principal); L97.518 Non-pressure chronic ulcer of other part of right foot with other specified severity; C90.00 Multiple myeloma not having achieved remission; Z94.81 Bone marrow transplant status; Z79.4 Long term (current) use of insulin | CPT/HCPCS: G0463 ==